=== PATIENT | male | born 1945 | race Two or more races ===

== ENCOUNTER 2018-04-06 09:29 | Outpatient (CLI) | payer OTHER ==
[~2018-04-06 09:29] MED LIST: BACTRIM DS TAB1 EACH PO; DOXYCYCLINE HY100 MG PO; FUROSEMIDE20 MG; LOSARTAN POTASS50 MG; NO RECUERDA
== END 2018-04-06 10:00 | disposition home or self-care (01) ==
LOC: NUCLEAR 09:29
DX: I82.493 Acute embolism and thrombosis of other specified deep vein of lower extremity, bilateral (principal)

== ENCOUNTER 2018-12-10 13:41 | Outpatient (CLI) | payer OTHER | END 2018-12-10 13:43 | disposition home or self-care (01) | LOC: RAD 13:41 | DX: M54.5 Low back pain (principal) ==

== ENCOUNTER 2018-12-12 09:57 | Outpatient (CLI) | payer OTHER | END 2018-12-12 11:10 | disposition home or self-care (01) | LOC: MRI 09:57 | DX: M54.5 Low back pain (principal) | CPT/HCPCS: 72148 ==

== ENCOUNTER → 2020-01-22 | Outpatient (CLI) | payer OTHER | END | disposition home or self-care (01) | LOC: NUCLEAR 07:32 | PROVIDERS: ATTEND Internal Medicine | DX: I82.542 Chronic embolism and thrombosis of left tibial vein (principal) ==

== ENCOUNTER 2020-05-17 16:58 | Emergency (ER) | payer OTHER ==
[~2020-05-17] VITALS: Ht 190.5 cm; Wt 122.5 kg
== END 2020-05-17 20:26 | disposition home or self-care (01) ==
LOC: ER 16:58
DX: I16.0 Hypertensive urgency (principal); I10 Essential (primary) hypertension; R06.02 Shortness of breath; Z03.818 Encounter for observation for suspected exposure to other biological agents ruled out

== ENCOUNTER 2020-06-20 19:48 | Emergency (ER) | payer OTHER ==
[~2020-06-20] VITALS: Ht 190.5 cm; Wt 125.2 kg
[2020-06-20] MEDS ORDERED: MAXIMUM D3325 MCG PO (20:06)
[2020-06-20] MEDS ORDERED: LOSARTAN POTAS100 MG PO (20:06)
[2020-06-20] MEDS ORDERED: GABAPENTIN600 MG PO (20:06)
[2020-06-20] MEDS ORDERED: LASIX40 MG PO (20:07)
[2020-06-20] MEDS ORDERED: CYMBALTA20 MG PO (20:07)
[2020-06-20] MEDS ORDERED: ADULT ASPIRIN R81 MG PO (20:08)
== END 2020-06-20 23:36 | disposition home or self-care (01) ==
LOC: ER 19:48
DX: I16.0 Hypertensive urgency (principal); I10 Essential (primary) hypertension; J44.9 Chronic obstructive pulmonary disease, unspecified

== ENCOUNTER 2020-07-27 08:21 | Outpatient (CLI) | payer OTHER ==
[~2020-07-27 08:21] MED LIST changes: +ADULT ASPIRIN R81 MG PO; +CYMBALTA20 MG PO; +GABAPENTIN600 MG PO; +LASIX40 MG PO; +LOSARTAN POTAS100 MG PO; +MAXIMUM D3325 MCG PO
== END 2020-07-27 08:24 | disposition home or self-care (01) ==
LOC: RAD 08:21
PROVIDERS: ATTEND Internal Medicine Pulmonary Disease
DX: R06.02 Shortness of breath (principal); J43.2 Centrilobular emphysema

== ENCOUNTER 2020-12-02 07:52 | Emergency (ER) | payer OTHER ==
[~2020-12-02] VITALS: Ht 190.5 cm; Wt 122.5 kg
== END 2020-12-02 08:58 | disposition home or self-care (01) ==
LOC: ER 07:52
DX: I16.1 Hypertensive emergency (principal); I10 Essential (primary) hypertension

== ENCOUNTER 2021-01-08 09:41 | Outpatient (CLI) | payer OTHER | END 2021-01-08 09:43 | disposition home or self-care (01) | LOC: LAB 09:41 → RAD 09:41 → LAB 09:43 | PROVIDERS: ATTEND Internal Medicine | DX: I10 Essential (primary) hypertension (principal); E11.9 Type 2 diabetes mellitus without complications; E55.9 Vitamin D deficiency, unspecified; G62.9 Polyneuropathy, unspecified; M25.561 Pain in right knee; Z12.11 Encounter for screening for malignant neoplasm of colon; R97.20 Elevated prostate specific antigen [PSA] ==

== ENCOUNTER → 2021-01-12 10:02 | Outpatient (CLI) | payer OTHER | END | disposition home or self-care (01) | LOC: LAB 10:02 | PROVIDERS: ATTEND Internal Medicine | DX: M25.561 Pain in right knee (principal); I10 Essential (primary) hypertension; G62.9 Polyneuropathy, unspecified; M10.061 Idiopathic gout, right knee; E11.9 Type 2 diabetes mellitus without complications; E55.9 Vitamin D deficiency, unspecified; R97.20 Elevated prostate specific antigen [PSA]; Z12.11 Encounter for screening for malignant neoplasm of colon ==

== ENCOUNTER 2021-01-16 10:30 | Inpatient (IN) | payer OTHER ==
[~2021-01-16] VITALS: Ht 190.5 cm; Wt 122.5 kg
== END 2021-01-20 13:15 | disposition home or self-care (01) | DRG 190 ==
LOC: ER 10:30 → MEDI 17:29
PROVIDERS: ADMIT Internal Medicine; ATTEND Internal Medicine
PROC: 3E0F7SF Introduction of Other Gas into Respiratory Tract, Via Natural or Artificial Opening (ICD-10-PCS; principal; 2021-01-16)
PROC: 4A12X4Z Monitoring of Cardiac Electrical Activity, External Approach (ICD-10-PCS; 2021-01-16)
PROC: CB2YYZZ Tomographic (Tomo) Nuclear Medicine Imaging of Respiratory System using Other Radionuclide (ICD-10-PCS; 2021-01-16)
PROC: 4A033R1 Measurement of Arterial Saturation, Peripheral, Percutaneous Approach (ICD-10-PCS; 2021-01-16)
PROC: B24BZZZ Ultrasonography of Heart with Aorta (ICD-10-PCS; 2021-01-17)
DX: J44.1 Chronic obstructive pulmonary disease with (acute) exacerbation (principal); I50.23 Acute on chronic systolic (congestive) heart failure; J43.0 Unilateral pulmonary emphysema [MacLeod's syndrome]; R91.8 Other nonspecific abnormal finding of lung field; J45.998 Other asthma; I11.0 Hypertensive heart disease with heart failure; E66.01 Morbid (severe) obesity due to excess calories; Z72.0 Tobacco use; Z20.822 Contact with and (suspected) exposure to COVID-19

== ENCOUNTER → 2021-02-09 08:26 | Outpatient (CLI) | payer OTHER | END | disposition home or self-care (01) | LOC: NUCLEAR 08:26 | PROVIDERS: ATTEND Internal Medicine Pulmonary Disease | DX: R91.1 Solitary pulmonary nodule (principal); J43.2 Centrilobular emphysema; I82.523 Chronic embolism and thrombosis of iliac vein, bilateral | CPT/HCPCS: 78816; 93970; A9552 ==

== ENCOUNTER → 2021-03-04 07:14 | Outpatient (CLI) | payer OTHER | END | disposition home or self-care (01) | LOC: LAB 07:14 | PROVIDERS: ATTEND Radiology Diagnostic Radiology | DX: U07.1 COVID-19 (principal); D68.8 Other specified coagulation defects; B38.1 Chronic pulmonary coccidioidomycosis ==

== ENCOUNTER 2021-03-04 07:52 | Outpatient (CLI) | payer OTHER | END 2021-03-04 07:59 | disposition home or self-care (01) | LOC: MRI 07:52 | PROVIDERS: ATTEND Orthopaedic Surgery | DX: M22.41 Chondromalacia patellae, right knee (principal); M17.11 Unilateral primary osteoarthritis, right knee; M25.561 Pain in right knee | CPT/HCPCS: 73721 ==

== ENCOUNTER 2021-04-08 14:15 | Outpatient (CLI) | payer OTHER | END 2021-04-08 14:16 | disposition home or self-care (01) | LOC: LAB 14:15 | PROVIDERS: ATTEND Internal Medicine Hematology & Oncology | DX: D50.8 Other iron deficiency anemias (principal); D68.8 Other specified coagulation defects; R91.8 Other nonspecific abnormal finding of lung field; G47.33 Obstructive sleep apnea (adult) (pediatric); I10 Essential (primary) hypertension; R97.0 Elevated carcinoembryonic antigen [CEA] ==

== ENCOUNTER → 2021-04-21 | Emergency (ER) | payer OTHER ==
[~2021-04-21] VITALS: Ht 190.5 cm; Wt 131.5 kg
== END | disposition left against medical advice (07) ==
LOC: ER 08:26
DX: Z53.20 Procedure and treatment not carried out because of patient's decision for unspecified reasons (principal)

== ENCOUNTER 2021-05-04 08:18 | Outpatient (CLI) | payer OTHER | END 2021-05-04 15:57 | disposition home or self-care (01) | LOC: LAB 08:18 | PROVIDERS: ATTEND Internal Medicine Hematology & Oncology | DX: G47.33 Obstructive sleep apnea (adult) (pediatric) (principal); D50.8 Other iron deficiency anemias; D68.8 Other specified coagulation defects; R91.8 Other nonspecific abnormal finding of lung field; I10 Essential (primary) hypertension; R97.0 Elevated carcinoembryonic antigen [CEA] ==

== ENCOUNTER → 2021-05-18 08:49 | Outpatient (CLI) | payer OTHER | END | disposition home or self-care (01) | LOC: LAB 08:49 | PROVIDERS: ATTEND Internal Medicine Hematology & Oncology | DX: I10 Essential (primary) hypertension (principal); D50.8 Other iron deficiency anemias; R74.02 Elevation of levels of lactic acid dehydrogenase [LDH]; K76.89 Other specified diseases of liver; R97.0 Elevated carcinoembryonic antigen [CEA]; R97.8 Other abnormal tumor markers; R91.8 Other nonspecific abnormal finding of lung field; G47.33 Obstructive sleep apnea (adult) (pediatric) ==

== ENCOUNTER 2021-06-15 05:50 | Day surgery (SDC) | payer OTHER | END 2021-06-15 15:04 | disposition home or self-care (01) | LOC: CIR.AMB 05:50 | PROVIDERS: ATTEND Specialist | DX: C34.12 Malignant neoplasm of upper lobe, left bronchus or lung (principal); Z20.822 Contact with and (suspected) exposure to COVID-19 | CPT/HCPCS: 36561; C1751 ==

== ENCOUNTER → 2021-06-18 08:23 | Outpatient (CLI) | payer OTHER | END | disposition home or self-care (01) | LOC: LAB 08:23 | PROVIDERS: ATTEND Internal Medicine | DX: E11.9 Type 2 diabetes mellitus without complications (principal); D50.8 Other iron deficiency anemias; I10 Essential (primary) hypertension; R74.02 Elevation of levels of lactic acid dehydrogenase [LDH]; K76.89 Other specified diseases of liver; R97.0 Elevated carcinoembryonic antigen [CEA]; R97.8 Other abnormal tumor markers; C34.12 Malignant neoplasm of upper lobe, left bronchus or lung; R91.8 Other nonspecific abnormal finding of lung field; G47.33 Obstructive sleep apnea (adult) (pediatric) ==

== ENCOUNTER 2021-06-30 07:25 | Outpatient (CLI) | payer OTHER | END 2021-06-30 07:26 | disposition home or self-care (01) | LOC: NUCLEAR 07:25 | DX: C34.12 Malignant neoplasm of upper lobe, left bronchus or lung (principal) | CPT/HCPCS: 78815; A9552 ==

== ENCOUNTER 2021-06-30 08:00 | Outpatient (CLI) | payer OTHER | END 2021-06-30 08:30 | disposition home or self-care (01) | LOC: PPH VACUNA 08:00 | PROVIDERS: ATTEND Emergency Medicine Pediatric Emergency Medicine | DX: Z23 Encounter for immunization (principal) ==

== ENCOUNTER 2021-07-23 08:16 | Outpatient (CLI) | payer OTHER | END 2021-07-23 08:20 | disposition home or self-care (01) | LOC: LAB 08:16 | PROVIDERS: ATTEND Internal Medicine Hematology & Oncology | DX: C34.12 Malignant neoplasm of upper lobe, left bronchus or lung (principal); R19.8 Other specified symptoms and signs involving the digestive system and abdomen; G47.33 Obstructive sleep apnea (adult) (pediatric); I10 Essential (primary) hypertension; R97.0 Elevated carcinoembryonic antigen [CEA] ==

== ENCOUNTER 2021-08-31 08:04 | Outpatient (CLI) | payer OTHER | END 2021-08-31 08:10 | disposition home or self-care (01) | LOC: LAB 08:04 | PROVIDERS: ATTEND Internal Medicine Hematology & Oncology | DX: D50.8 Other iron deficiency anemias (principal); I10 Essential (primary) hypertension; R74.02 Elevation of levels of lactic acid dehydrogenase [LDH]; K76.89 Other specified diseases of liver; R97.0 Elevated carcinoembryonic antigen [CEA]; R97.8 Other abnormal tumor markers; C34.12 Malignant neoplasm of upper lobe, left bronchus or lung; R91.8 Other nonspecific abnormal finding of lung field; G47.33 Obstructive sleep apnea (adult) (pediatric) ==

== ENCOUNTER → 2021-09-20 07:31 | Outpatient (CLI) | payer OTHER | END | disposition home or self-care (01) | LOC: LAB 07:31 | PROVIDERS: ATTEND Internal Medicine Hematology & Oncology | DX: D50.8 Other iron deficiency anemias (principal); I10 Essential (primary) hypertension; R74.02 Elevation of levels of lactic acid dehydrogenase [LDH]; K76.89 Other specified diseases of liver; R97.0 Elevated carcinoembryonic antigen [CEA]; R97.8 Other abnormal tumor markers; C34.12 Malignant neoplasm of upper lobe, left bronchus or lung; R91.8 Other nonspecific abnormal finding of lung field; G47.33 Obstructive sleep apnea (adult) (pediatric); M25.561 Pain in right knee; M25.562 Pain in left knee ==

== ENCOUNTER 2021-09-28 08:11 | Outpatient (CLI) | payer OTHER | END 2021-09-28 08:12 | disposition home or self-care (01) | LOC: LAB 08:11 | PROVIDERS: ATTEND Internal Medicine Hematology & Oncology | DX: D50.8 Other iron deficiency anemias (principal) ==

== ENCOUNTER 2021-10-08 08:28 | Outpatient (CLI) | payer OTHER | END 2021-10-08 08:29 | disposition home or self-care (01) | LOC: LAB 08:28 | PROVIDERS: ATTEND Internal Medicine Hematology & Oncology | DX: D50.8 Other iron deficiency anemias (principal); I10 Essential (primary) hypertension; K76.89 Other specified diseases of liver; R97.0 Elevated carcinoembryonic antigen [CEA]; R97.8 Other abnormal tumor markers; R97.20 Elevated prostate specific antigen [PSA]; C34.12 Malignant neoplasm of upper lobe, left bronchus or lung; R91.8 Other nonspecific abnormal finding of lung field; G47.33 Obstructive sleep apnea (adult) (pediatric) ==

== ENCOUNTER 2021-10-19 07:32 | Outpatient (CLI) | payer OTHER | END 2021-10-19 07:33 | disposition home or self-care (01) | LOC: LAB 07:32 | PROVIDERS: ATTEND Internal Medicine Hematology & Oncology | DX: D50.8 Other iron deficiency anemias (principal) ==

== ENCOUNTER 2021-10-22 08:24 | Outpatient (CLI) | payer OTHER | END 2021-10-22 08:39 | disposition home or self-care (01) | LOC: MRI 08:24 | PROVIDERS: ATTEND Radiology Radiation Oncology | DX: C34.12 Malignant neoplasm of upper lobe, left bronchus or lung (principal); R51.9 Headache, unspecified; R42 Dizziness and giddiness | CPT/HCPCS: 70553; Q9965 ==

== ENCOUNTER 2021-11-01 08:36 | Outpatient (CLI) | payer OTHER | END 2021-11-01 08:37 | disposition home or self-care (01) | LOC: LAB 08:36 | PROVIDERS: ATTEND Internal Medicine Hematology & Oncology | DX: D50.8 Other iron deficiency anemias (principal); I10 Essential (primary) hypertension; R74.02 Elevation of levels of lactic acid dehydrogenase [LDH]; K76.89 Other specified diseases of liver; R97.0 Elevated carcinoembryonic antigen [CEA]; R97.8 Other abnormal tumor markers; C34.12 Malignant neoplasm of upper lobe, left bronchus or lung; R91.8 Other nonspecific abnormal finding of lung field; G47.33 Obstructive sleep apnea (adult) (pediatric); D70.1 Agranulocytosis secondary to cancer chemotherapy ==

== ENCOUNTER 2021-11-08 08:45 | Outpatient (CLI) | payer OTHER | END 2021-11-08 08:46 | disposition home or self-care (01) | LOC: LAB 08:45 | PROVIDERS: ATTEND Internal Medicine Hematology & Oncology | DX: D50.8 Other iron deficiency anemias (principal) ==

== ENCOUNTER 2021-11-10 08:27 | Outpatient (CLI) | payer OTHER | END 2021-11-10 08:28 | disposition home or self-care (01) | LOC: LAB 08:27 | PROVIDERS: ATTEND Internal Medicine Hematology & Oncology | DX: D50.8 Other iron deficiency anemias (principal) ==

== ENCOUNTER 2021-11-22 08:09 | Outpatient (CLI) | payer OTHER | END 2021-11-22 08:10 | disposition home or self-care (01) | LOC: LAB 08:09 | PROVIDERS: ATTEND Internal Medicine Hematology & Oncology | DX: C34.12 Malignant neoplasm of upper lobe, left bronchus or lung (principal); R91.8 Other nonspecific abnormal finding of lung field; G47.33 Obstructive sleep apnea (adult) (pediatric); I10 Essential (primary) hypertension; R97.0 Elevated carcinoembryonic antigen [CEA]; D70.1 Agranulocytosis secondary to cancer chemotherapy ==

== ENCOUNTER 2021-11-30 07:21 | Outpatient (CLI) | payer OTHER | END 2021-11-30 07:22 | disposition home or self-care (01) | LOC: LAB 07:21 | PROVIDERS: ATTEND Internal Medicine Hematology & Oncology | DX: D50.8 Other iron deficiency anemias (principal) ==

== ENCOUNTER 2021-12-02 07:18 | Outpatient (CLI) | payer OTHER | END 2021-12-02 07:19 | disposition home or self-care (01) | LOC: NUCLEAR 07:18 | PROVIDERS: ATTEND Internal Medicine Hematology & Oncology | DX: C34.12 Malignant neoplasm of upper lobe, left bronchus or lung (principal); R91.8 Other nonspecific abnormal finding of lung field; G47.33 Obstructive sleep apnea (adult) (pediatric); I10 Essential (primary) hypertension; R97.0 Elevated carcinoembryonic antigen [CEA]; D70.1 Agranulocytosis secondary to cancer chemotherapy | CPT/HCPCS: 78812; A9552 ==

== ENCOUNTER 2021-12-02 08:00 | Outpatient (CLI) | payer OTHER | END 2021-12-02 08:30 | disposition home or self-care (01) | LOC: PPH VACUNA 08:00 | PROVIDERS: ATTEND Emergency Medicine Pediatric Emergency Medicine | DX: Z23 Encounter for immunization (principal) ==

== ENCOUNTER 2021-12-04 07:26 | Outpatient (CLI) | payer OTHER | END 2021-12-04 07:29 | disposition home or self-care (01) | LOC: LAB 07:26 | PROVIDERS: ATTEND Internal Medicine Hematology & Oncology | DX: D50.8 Other iron deficiency anemias (principal); I10 Essential (primary) hypertension; R74.02 Elevation of levels of lactic acid dehydrogenase [LDH]; K76.89 Other specified diseases of liver; R97.0 Elevated carcinoembryonic antigen [CEA]; R97.8 Other abnormal tumor markers; C34.12 Malignant neoplasm of upper lobe, left bronchus or lung; R91.8 Other nonspecific abnormal finding of lung field; G47.33 Obstructive sleep apnea (adult) (pediatric) ==

== ENCOUNTER 2022-01-05 07:30 | Outpatient (CLI) | payer OTHER | END 2022-01-05 07:33 | disposition home or self-care (01) | LOC: LAB 07:30 | PROVIDERS: ATTEND Internal Medicine Hematology & Oncology | DX: C34.12 Malignant neoplasm of upper lobe, left bronchus or lung (principal); R91.8 Other nonspecific abnormal finding of lung field; G47.33 Obstructive sleep apnea (adult) (pediatric); I10 Essential (primary) hypertension; R97.0 Elevated carcinoembryonic antigen [CEA]; D70.1 Agranulocytosis secondary to cancer chemotherapy ==

== ENCOUNTER 2022-02-12 07:05 | Outpatient (CLI) | payer OTHER | END 2022-02-12 07:06 | disposition home or self-care (01) | LOC: LAB 07:05 | PROVIDERS: ATTEND Internal Medicine Hematology & Oncology | DX: D50.8 Other iron deficiency anemias (principal); I10 Essential (primary) hypertension; R74.02 Elevation of levels of lactic acid dehydrogenase [LDH]; K76.89 Other specified diseases of liver; D51.8 Other vitamin B12 deficiency anemias; R97.0 Elevated carcinoembryonic antigen [CEA]; R97.8 Other abnormal tumor markers; C34.12 Malignant neoplasm of upper lobe, left bronchus or lung; R91.8 Other nonspecific abnormal finding of lung field; G47.33 Obstructive sleep apnea (adult) (pediatric); D70.1 Agranulocytosis secondary to cancer chemotherapy ==

== ENCOUNTER 2022-02-17 07:16 | Outpatient (CLI) | payer OTHER | END 2022-02-17 07:27 | disposition home or self-care (01) | LOC: TOM 07:16 | PROVIDERS: ATTEND Internal Medicine Hematology & Oncology | DX: C34.12 Malignant neoplasm of upper lobe, left bronchus or lung (principal); R91.8 Other nonspecific abnormal finding of lung field; G47.33 Obstructive sleep apnea (adult) (pediatric); I10 Essential (primary) hypertension; R97.0 Elevated carcinoembryonic antigen [CEA]; D70.1 Agranulocytosis secondary to cancer chemotherapy | CPT/HCPCS: 71260; Q9965 ==

== ENCOUNTER 2022-03-01 07:26 | Outpatient (CLI) | payer OTHER | END 2022-03-01 07:35 | disposition home or self-care (01) | LOC: LAB 07:26 | PROVIDERS: ATTEND Internal Medicine | DX: I10 Essential (primary) hypertension (principal); M10.9 Gout, unspecified; E55.9 Vitamin D deficiency, unspecified; E11.9 Type 2 diabetes mellitus without complications; Z12.11 Encounter for screening for malignant neoplasm of colon ==

== ENCOUNTER 2022-04-01 07:17 | Outpatient (CLI) | payer OTHER | END 2022-04-01 07:18 | disposition home or self-care (01) | LOC: LAB 07:17 | PROVIDERS: ATTEND Internal Medicine Hematology & Oncology | DX: D50.8 Other iron deficiency anemias (principal); I10 Essential (primary) hypertension; R74.02 Elevation of levels of lactic acid dehydrogenase [LDH]; K76.89 Other specified diseases of liver; D51.8 Other vitamin B12 deficiency anemias; R97.0 Elevated carcinoembryonic antigen [CEA]; R97.8 Other abnormal tumor markers; C34.12 Malignant neoplasm of upper lobe, left bronchus or lung; R91.8 Other nonspecific abnormal finding of lung field; G47.33 Obstructive sleep apnea (adult) (pediatric); D70.1 Agranulocytosis secondary to cancer chemotherapy ==

== ENCOUNTER 2022-05-16 07:38 | Outpatient (CLI) | payer OTHER | END 2022-05-16 07:39 | disposition home or self-care (01) | LOC: LAB 07:38 | PROVIDERS: ATTEND Internal Medicine Hematology & Oncology | DX: D50.8 Other iron deficiency anemias (principal); I10 Essential (primary) hypertension; R74.02 Elevation of levels of lactic acid dehydrogenase [LDH]; K76.89 Other specified diseases of liver; R97.0 Elevated carcinoembryonic antigen [CEA]; R97.8 Other abnormal tumor markers; C34.12 Malignant neoplasm of upper lobe, left bronchus or lung; G47.33 Obstructive sleep apnea (adult) (pediatric) ==

== ENCOUNTER 2022-05-25 11:57 | Outpatient (CLI) | payer OTHER | END 2022-05-25 12:03 | disposition home or self-care (01) | LOC: RX STUDY 11:57 | PROVIDERS: ATTEND Internal Medicine Hematology & Oncology | DX: T85.618A Breakdown (mechanical) of other specified internal prosthetic devices, implants and grafts, initial encounter (principal) ==

== ENCOUNTER 2022-07-15 08:17 | Outpatient (CLI) | payer OTHER | END 2022-07-15 08:19 | disposition home or self-care (01) | LOC: LAB 08:17 | PROVIDERS: ATTEND Internal Medicine Hematology & Oncology | DX: D50.8 Other iron deficiency anemias (principal); I10 Essential (primary) hypertension; R74.02 Elevation of levels of lactic acid dehydrogenase [LDH]; K76.89 Other specified diseases of liver; E03.8 Other specified hypothyroidism; R97.0 Elevated carcinoembryonic antigen [CEA]; R97.8 Other abnormal tumor markers; R97.20 Elevated prostate specific antigen [PSA] ==

== ENCOUNTER 2022-08-17 08:26 | Outpatient (CLI) | payer OTHER | END 2022-08-17 08:30 | disposition home or self-care (01) | LOC: NUCLEAR 08:26 | PROVIDERS: ATTEND Internal Medicine Hematology & Oncology | DX: C34.12 Malignant neoplasm of upper lobe, left bronchus or lung (principal); R91.8 Other nonspecific abnormal finding of lung field; G47.33 Obstructive sleep apnea (adult) (pediatric); I10 Essential (primary) hypertension; R97.0 Elevated carcinoembryonic antigen [CEA]; D70.1 Agranulocytosis secondary to cancer chemotherapy | CPT/HCPCS: 78816; A9552 ==

== ENCOUNTER 2022-08-29 09:22 | Emergency (ER) | payer OTHER ==
[~2022-08-29] VITALS: Ht 190.5 cm; Wt 129.3 kg
[2022-08-29] MEDS ORDERED: METFORMIN HCL500 M3 PO (09:35)
== END 2022-08-29 13:32 | disposition home or self-care (01) ==
LOC: ER 09:22
DX: J43.9 Emphysema, unspecified (principal); Z20.822 Contact with and (suspected) exposure to COVID-19; Z85.118 Personal history of other malignant neoplasm of bronchus and lung

== ENCOUNTER → 2022-09-10 07:41 | Outpatient (CLI) | payer OTHER ==
[~2022-09-10 07:41] MED LIST changes: +METFORMIN HCL500 M3 PO
== END | disposition home or self-care (01) ==
LOC: LAB 07:41
PROVIDERS: ATTEND Internal Medicine Hematology & Oncology
DX: D50.8 Other iron deficiency anemias (principal); I10 Essential (primary) hypertension; R74.02 Elevation of levels of lactic acid dehydrogenase [LDH]; K76.89 Other specified diseases of liver; R97.0 Elevated carcinoembryonic antigen [CEA]; R97.8 Other abnormal tumor markers; C34.12 Malignant neoplasm of upper lobe, left bronchus or lung; R91.8 Other nonspecific abnormal finding of lung field; D70.1 Agranulocytosis secondary to cancer chemotherapy

== ENCOUNTER 2022-09-26 08:04 | Outpatient (CLI) | payer OTHER | END 2022-09-26 08:14 | disposition home or self-care (01) | LOC: TOM 08:04 | PROVIDERS: ATTEND Internal Medicine Gastroenterology | DX: Z12.11 Encounter for screening for malignant neoplasm of colon (principal); Z80.0 Family history of malignant neoplasm of digestive organs; K56.600 Partial intestinal obstruction, unspecified as to cause ==

== ENCOUNTER → 2022-10-06 08:22 | Outpatient (CLI) | payer OTHER | END | disposition home or self-care (01) | LOC: LAB 08:22 | PROVIDERS: ATTEND Internal Medicine Hematology & Oncology | DX: D50.8 Other iron deficiency anemias (principal); I10 Essential (primary) hypertension; R74.02 Elevation of levels of lactic acid dehydrogenase [LDH]; K76.89 Other specified diseases of liver; R97.0 Elevated carcinoembryonic antigen [CEA]; R97.8 Other abnormal tumor markers; C34.12 Malignant neoplasm of upper lobe, left bronchus or lung; R91.8 Other nonspecific abnormal finding of lung field; G47.33 Obstructive sleep apnea (adult) (pediatric); D70.1 Agranulocytosis secondary to cancer chemotherapy ==

== ENCOUNTER 2022-11-07 08:07 | Outpatient (CLI) | payer OTHER | END 2022-11-07 08:11 | disposition home or self-care (01) | LOC: LAB 08:07 | PROVIDERS: ATTEND Internal Medicine Hematology & Oncology | DX: D50.8 Other iron deficiency anemias (principal); I10 Essential (primary) hypertension; R74.02 Elevation of levels of lactic acid dehydrogenase [LDH]; K76.89 Other specified diseases of liver; D51.8 Other vitamin B12 deficiency anemias; R97.0 Elevated carcinoembryonic antigen [CEA]; R97.8 Other abnormal tumor markers; C34.12 Malignant neoplasm of upper lobe, left bronchus or lung; R91.8 Other nonspecific abnormal finding of lung field; G47.33 Obstructive sleep apnea (adult) (pediatric) ==

== ENCOUNTER 2022-11-11 19:40 | Emergency (ER) | payer OTHER ==
[~2022-11-11] VITALS: Ht 190.5 cm; Wt 127.0 kg
[2022-11-11] MEDS ORDERED: COZAAR100 MG (20:17)
[2022-11-11] MEDS ORDERED: GLUMETZA500 MG (20:17)
[2022-11-11] MEDS ORDERED: NEURONTIN600 M1 (20:18)
[2022-11-11] MEDS ORDERED: DULOXETINE HCL40 MG (20:18)
[2022-11-11] MEDS ORDERED: MILLIPRED5 MG (20:18)
[2022-11-11] MEDS ORDERED: LASIX40 MG (20:18)
[2022-11-11] MEDS ORDERED: LEVOFLOXACIN750 MG PO (23:12)
== END 2022-11-11 23:27 | disposition home or self-care (01) ==
LOC: ER 19:40
DX: J44.1 Chronic obstructive pulmonary disease with (acute) exacerbation (principal); J45.901 Unspecified asthma with (acute) exacerbation; C34.90 Malignant neoplasm of unspecified part of unspecified bronchus or lung; E11.9 Type 2 diabetes mellitus without complications; Z79.84 Long term (current) use of oral hypoglycemic drugs; I10 Essential (primary) hypertension; Z87.891 Personal history of nicotine dependence; Z20.822 Contact with and (suspected) exposure to COVID-19

== ENCOUNTER 2022-12-02 07:55 | Outpatient (CLI) | payer OTHER ==
[~2022-12-02 07:55] MED LIST changes: +COZAAR100 MG; +DULOXETINE HCL40 MG; +GLUMETZA500 MG; +LASIX40 MG; +LEVOFLOXACIN750 MG PO; +MILLIPRED5 MG; +NEURONTIN600 M1
== END 2022-12-02 07:58 | disposition home or self-care (01) ==
LOC: LAB 07:55
PROVIDERS: ATTEND Internal Medicine Hematology & Oncology
DX: D50.8 Other iron deficiency anemias (principal); I10 Essential (primary) hypertension; R74.02 Elevation of levels of lactic acid dehydrogenase [LDH]; K76.89 Other specified diseases of liver; R97.0 Elevated carcinoembryonic antigen [CEA]; R97.8 Other abnormal tumor markers; R97.20 Elevated prostate specific antigen [PSA]; C34.12 Malignant neoplasm of upper lobe, left bronchus or lung; G47.33 Obstructive sleep apnea (adult) (pediatric); D70.1 Agranulocytosis secondary to cancer chemotherapy; R91.8 Other nonspecific abnormal finding of lung field

== ENCOUNTER 2023-01-03 07:53 | Outpatient (CLI) | payer OTHER | END 2023-01-03 07:55 | disposition home or self-care (01) | LOC: LAB 07:53 | PROVIDERS: ATTEND Internal Medicine Hematology & Oncology | DX: D50.8 Other iron deficiency anemias (principal); I10 Essential (primary) hypertension; R74.02 Elevation of levels of lactic acid dehydrogenase [LDH]; K76.89 Other specified diseases of liver; R97.0 Elevated carcinoembryonic antigen [CEA]; R97.8 Other abnormal tumor markers; D51.8 Other vitamin B12 deficiency anemias; C34.12 Malignant neoplasm of upper lobe, left bronchus or lung; R91.8 Other nonspecific abnormal finding of lung field; G47.33 Obstructive sleep apnea (adult) (pediatric); D70.1 Agranulocytosis secondary to cancer chemotherapy ==

== ENCOUNTER 2023-01-30 08:20 | Outpatient (CLI) | payer OTHER | END 2023-01-30 09:43 | disposition home or self-care (01) | LOC: LAB 08:20 | PROVIDERS: ATTEND Internal Medicine Hematology & Oncology | DX: D50.8 Other iron deficiency anemias (principal); I10 Essential (primary) hypertension; R74.02 Elevation of levels of lactic acid dehydrogenase [LDH]; K76.89 Other specified diseases of liver; R97.0 Elevated carcinoembryonic antigen [CEA]; R97.8 Other abnormal tumor markers; C34.12 Malignant neoplasm of upper lobe, left bronchus or lung; R91.8 Other nonspecific abnormal finding of lung field; G47.33 Obstructive sleep apnea (adult) (pediatric); D70.1 Agranulocytosis secondary to cancer chemotherapy ==

== ENCOUNTER 2023-03-14 08:00 | Outpatient (CLI) | payer OTHER | END 2023-03-14 08:01 | disposition home or self-care (01) | LOC: LAB 08:00 | PROVIDERS: ATTEND Internal Medicine Hematology & Oncology | DX: D50.8 Other iron deficiency anemias (principal); I10 Essential (primary) hypertension; R74.02 Elevation of levels of lactic acid dehydrogenase [LDH]; K76.89 Other specified diseases of liver; D51.8 Other vitamin B12 deficiency anemias; R97.8 Other abnormal tumor markers; R97.0 Elevated carcinoembryonic antigen [CEA]; R97.20 Elevated prostate specific antigen [PSA]; C34.12 Malignant neoplasm of upper lobe, left bronchus or lung; R91.8 Other nonspecific abnormal finding of lung field; G47.33 Obstructive sleep apnea (adult) (pediatric); D70.1 Agranulocytosis secondary to cancer chemotherapy ==

== ENCOUNTER → 2023-04-11 07:46 | Outpatient (CLI) | payer OTHER | END | disposition home or self-care (01) | LOC: LAB 07:46 | PROVIDERS: ATTEND Internal Medicine Hematology & Oncology | DX: D50.8 Other iron deficiency anemias (principal); I10 Essential (primary) hypertension; R74.02 Elevation of levels of lactic acid dehydrogenase [LDH]; K76.89 Other specified diseases of liver; R97.0 Elevated carcinoembryonic antigen [CEA]; R97.8 Other abnormal tumor markers; C34.12 Malignant neoplasm of upper lobe, left bronchus or lung; R91.8 Other nonspecific abnormal finding of lung field; G47.33 Obstructive sleep apnea (adult) (pediatric); D70.1 Agranulocytosis secondary to cancer chemotherapy ==

== ENCOUNTER → 2023-06-01 08:09 | Outpatient (CLI) | payer OTHER ==
[2023-06-01 09:21] LABS: HEMATOCRIT 46.5 % (39.0-48.0); HEMOGLOBIN 15.7 g/dL (13-16.00); MEAN CELL VOLUME 103.2 fL (80.0-100.00); MEAN CORPUSCULAR HEMOGLOBIN 34.8 pg (27.00-32.0); MEAN CORPUSCULAR HGB CONC 33.7 g/dl (32.0-36.0); PLATELET COUNT 190 K/uL (150-450); RED CELL DISTRIBUTION WIDTH 13.7 % (11.5-14.5)
[2023-06-01 09:43] LABS: ALBUMIN 3.8 gm/dL (3.4-5.0); BILIRUBIN TOTAL 0.4 mg/dL (0.3-1.2); CALCIUM 9.3 mg/dL (8.5-10.1); CREATININE SERUM 1.19 mg/dL (0.70-1.30); GFR 59.28; GLOBULINA 3.4 G/DL (2.4-3.5); POTASSIUM 5.06 mEq/L (3.5-5.1); PROSTATIC SPECIFIC ANTIGEN 2.21 NG/ML (0.010-4.00); TOTAL PROTEIN 7.2 gm/dL (6.4-8.2)
== END | disposition home or self-care (01) ==
LOC: LAB 08:09
PROVIDERS: ATTEND Internal Medicine Hematology & Oncology
DX: D50.8 Other iron deficiency anemias (principal); I10 Essential (primary) hypertension; R74.02 Elevation of levels of lactic acid dehydrogenase [LDH]; K76.89 Other specified diseases of liver; R97.0 Elevated carcinoembryonic antigen [CEA]; R97.8 Other abnormal tumor markers; R97.20 Elevated prostate specific antigen [PSA]; C34.12 Malignant neoplasm of upper lobe, left bronchus or lung; R91.8 Other nonspecific abnormal finding of lung field; G47.33 Obstructive sleep apnea (adult) (pediatric); D70.1 Agranulocytosis secondary to cancer chemotherapy

== ENCOUNTER 2023-08-28 07:15 | Outpatient (CLI) | payer OTHER ==
[2023-08-28 08:00] LABS: PH,URINE 6.5 (5.0-8.0); URINE APPEARANCE Clear; URINE BILIRRUBIN Negative (NEGATIVE); URINE BLOOD Negative; URINE COLOR Yellow; URINE GLUCOSE Negative (NEGATIVE); URINE LEUKOCYTE Negative; URINE NITRATE Negative; URINE PROTEIN Negative (NEGATIVE); URINE UROBILINOGEN 0.2 E.U./dl
[2023-08-28 08:02] LABS: URINE RBC 2.5 uL (0.0-20.8)
[2023-08-28 08:39] LABS: HEMATOCRIT 44.7 % (39.0-48.0); HEMOGLOBIN 15.2 g/dL (13-16.00); MEAN CELL VOLUME 101.6 fL (80.0-100.00); MEAN CORPUSCULAR HEMOGLOBIN 34.6 pg (27.00-32.0); MEAN CORPUSCULAR HGB CONC 34.1 g/dl (32.0-36.0); PLATELET COUNT 179 K/uL (150-450); RED CELL DISTRIBUTION WIDTH 13.6 % (11.5-14.5)
[2023-08-28 08:45] LABS: ALBUMIN 3.7 gm/dL (3.4-5.0); BILIRUBIN TOTAL 0.49 mg/dL (0.3-1.2); CHOL HDL RATIO 3.2 (0-5.0); CREATININE SERUM 1.21 mg/dL (0.70-1.30); GFR 58.15; GLOBULINA 3.2 G/DL (2.4-3.5); POTASSIUM 4.9 mEq/L (3.5-5.1); PROSTATIC SPECIFIC ANTIGEN 2.28 NG/ML (0.010-4.00); TOTAL PROTEIN 6.9 gm/dL (6.4-8.2); TSH 1.03 uIU/mL (0.358-3.74)
[2023-08-28 08:48] LABS: URINE WBC 0.6 uL (0.0-23.2)
[2023-08-28 08:49] LABS: URINE BACTERIA 1.2 uL (0.0-1933); URINE EPITHELIAL CELLS 0.7 uL (0.0-38.8)
[2023-08-28 10:45] LABS: FOLIC ACID 8.97 ng/ml (4.78-20); VITAMIN D3 25 HYDROXY 30.93 ng/ml (30-120)
== END 2023-08-28 08:17 | disposition home or self-care (01) ==
LOC: LAB 07:15
PROVIDERS: ATTEND Internal Medicine Hematology & Oncology
DX: C34.12 Malignant neoplasm of upper lobe, left bronchus or lung (principal); D50.8 Other iron deficiency anemias; R74.02 Elevation of levels of lactic acid dehydrogenase [LDH]; K76.89 Other specified diseases of liver; D51.8 Other vitamin B12 deficiency anemias; R91.8 Other nonspecific abnormal finding of lung field; I10 Essential (primary) hypertension; R97.0 Elevated carcinoembryonic antigen [CEA]; D70.1 Agranulocytosis secondary to cancer chemotherapy

== ENCOUNTER 2023-08-30 08:49 | Outpatient (CLI) | payer OTHER ==
[2023-08-30 12:13] LABS: ob NEGATIVE (NEGATIVE)
== END 2023-08-30 08:53 | disposition home or self-care (01) ==
LOC: LAB 08:49
PROVIDERS: Internal Medicine Hematology & Oncology; ATTEND Internal Medicine
DX: E03.9 Hypothyroidism, unspecified (principal); E11.21 Type 2 diabetes mellitus with diabetic nephropathy; N39.9 Disorder of urinary system, unspecified; N40.1 Benign prostatic hyperplasia with lower urinary tract symptoms; D40.0 Neoplasm of uncertain behavior of prostate; E78.2 Mixed hyperlipidemia; E11.65 Type 2 diabetes mellitus with hyperglycemia; Z12.11 Encounter for screening for malignant neoplasm of colon; D64.9 Anemia, unspecified; D68.8 Other specified coagulation defects; M32.10 Systemic lupus erythematosus, organ or system involvement unspecified; K75.81 Nonalcoholic steatohepatitis (NASH); N25.81 Secondary hyperparathyroidism of renal origin; N39.0 Urinary tract infection, site not specified; E55.9 Vitamin D deficiency, unspecified

== ENCOUNTER 2023-09-12 07:55 | Outpatient (CLI) | payer OTHER | END 2023-09-12 07:57 | disposition home or self-care (01) | LOC: NUCLEAR 07:55 | PROVIDERS: ATTEND Internal Medicine Hematology & Oncology | DX: C34.12 Malignant neoplasm of upper lobe, left bronchus or lung (principal); R91.8 Other nonspecific abnormal finding of lung field; R97.0 Elevated carcinoembryonic antigen [CEA]; D70.1 Agranulocytosis secondary to cancer chemotherapy | CPT/HCPCS: 78816; A9552 ==

== ENCOUNTER 2023-11-09 07:45 | Outpatient (CLI) | payer OTHER ==
[2023-11-09 09:07] LABS: HEMATOCRIT 43.8 % (39.0-48.0); MEAN CORPUSCULAR HGB CONC 34.3 g/dl (32.0-36.0); PLATELET COUNT 172 K/uL (150-450); RED BLOOD COUNT 4.29 M/uL (4.00-6.00); RED CELL DISTRIBUTION WIDTH 14.7 % (11.5-14.5)
[2023-11-09 09:09] LABS: ALBUMIN 3.7 gm/dL (3.4-5.0); BILIRUBIN TOTAL 0.34 mg/dL (0.3-1.2); CALCIUM 9.4 mg/dL (8.5-10.1); CREATININE SERUM 1.43 mg/dL (0.70-1.30); GFR 47.95; GLOBULINA 3.2 G/DL (2.4-3.5); POTASSIUM 4.42 mEq/L (3.5-5.1); PROSTATIC SPECIFIC ANTIGEN 2.09 NG/ML (0.010-4.00); TOTAL PROTEIN 6.9 gm/dL (6.4-8.2)
== END 2023-11-09 07:46 | disposition home or self-care (01) ==
LOC: LAB 07:45
PROVIDERS: ATTEND Internal Medicine Hematology & Oncology
DX: C34.12 Malignant neoplasm of upper lobe, left bronchus or lung (principal); R91.8 Other nonspecific abnormal finding of lung field; G47.33 Obstructive sleep apnea (adult) (pediatric); I10 Essential (primary) hypertension; R97.0 Elevated carcinoembryonic antigen [CEA]; D70.1 Agranulocytosis secondary to cancer chemotherapy

== ENCOUNTER 2024-01-30 08:07 | Outpatient (CLI) | payer OTHER ==
[2024-01-30 08:59] LABS: HEMATOCRIT 40.1 % (39.0-48.0); HEMOGLOBIN 14.1 g/dL (13-16.00); MEAN CELL VOLUME 103.7 fL (80.0-100.00); MEAN CORPUSCULAR HEMOGLOBIN 36.5 pg (27.00-32.0); MEAN CORPUSCULAR HGB CONC 35.2 g/dl (32.0-36.0); RED BLOOD COUNT 3.87 M/uL (4.00-6.00); RED CELL DISTRIBUTION WIDTH 15.1 % (11.5-14.5)
[2024-01-30 09:00] LABS: PLATELET COUNT 118 K/uL (150-450)
[2024-01-30 10:17] LABS: ALBUMIN 3.9 gm/dL (3.4-5.0); BILIRUBIN TOTAL 0.49 mg/dL (0.3-1.2); CALCIUM 9.8 mg/dL (8.5-10.1); CREATININE SERUM 1.61 mg/dL (0.70-1.30); GFR 41.71; GLOBULINA 3.2 G/DL (2.4-3.5); POTASSIUM 4.37 mEq/L (3.5-5.1); PROSTATIC SPECIFIC ANTIGEN 1.91 NG/ML (0.010-4.00); T4 FREE 0.13 NG/ML (0.76-1.46); TOTAL PROTEIN 7.1 gm/dL (6.4-8.2); TSH 66.1 uIU/mL (0.358-3.74)
== END 2024-01-30 08:10 | disposition home or self-care (01) ==
LOC: LAB 08:07
PROVIDERS: ATTEND Internal Medicine Hematology & Oncology
DX: C34.12 Malignant neoplasm of upper lobe, left bronchus or lung (principal); R91.8 Other nonspecific abnormal finding of lung field; G47.33 Obstructive sleep apnea (adult) (pediatric); I10 Essential (primary) hypertension; R97.0 Elevated carcinoembryonic antigen [CEA]; D70.1 Agranulocytosis secondary to cancer chemotherapy; D50.8 Other iron deficiency anemias; K76.89 Other specified diseases of liver; E03.8 Other specified hypothyroidism; R97.20 Elevated prostate specific antigen [PSA]

== ENCOUNTER → 2024-02-19 06:51 | Outpatient (CLI) | payer OTHER ==
[2024-02-19 07:45] LABS: HEMATOCRIT 37.5 % (39.0-48.0); HEMOGLOBIN 13.2 g/dL (13-16.00); MEAN CELL VOLUME 106.3 fL (80.0-100.00); MEAN CORPUSCULAR HEMOGLOBIN 37.5 pg (27.00-32.0); MEAN CORPUSCULAR HGB CONC 35.3 g/dl (32.0-36.0); PLATELET COUNT 164 K/uL (150-450); RED BLOOD COUNT 3.53 M/uL (4.00-6.00); RED CELL DISTRIBUTION WIDTH 14.8 % (11.5-14.5)
[2024-02-19 09:06] LABS: ALBUMIN 4.2 gm/dL (3.4-5.0); BILIRUBIN TOTAL 0.58 mg/dL (0.3-1.2); CALCIUM 9.4 mg/dL (8.5-10.1); CREATININE SERUM 1.33 mg/dL (0.70-1.30); FREE TRIODOTIRONINE 1.25 pg/ml (2.18-3.98); PHOSPHOROUS 3.5 mg/dL (2.5-4.9); POTASSIUM 4.43 mEq/L (3.5-5.1); T4 FREE 0.55 NG/ML (0.76-1.46); T4 TOTAL 5.3 UG/DL (4.5-12.1); TOTAL PROTEIN 7.2 gm/dL (6.4-8.2)
[2024-02-19 09:10] LABS: TSH 48.8 uIU/mL (0.358-3.74)
== END | disposition home or self-care (01) ==
LOC: LAB 06:51
PROVIDERS: ATTEND Internal Medicine Hematology & Oncology
DX: C34.12 Malignant neoplasm of upper lobe, left bronchus or lung (principal); R91.8 Other nonspecific abnormal finding of lung field; G47.33 Obstructive sleep apnea (adult) (pediatric); I10 Essential (primary) hypertension; R97.0 Elevated carcinoembryonic antigen [CEA]; D70.1 Agranulocytosis secondary to cancer chemotherapy; E03.9 Hypothyroidism, unspecified; N18.30 Chronic kidney disease, stage 3 unspecified

== ENCOUNTER 2024-02-19 07:38 | Outpatient (CLI) | payer OTHER | END 2024-02-19 07:46 | disposition home or self-care (01) | LOC: SONOGRAMA 07:38 | PROVIDERS: ATTEND Internal Medicine | DX: E03.9 Hypothyroidism, unspecified (principal) ==

== ENCOUNTER → 2024-03-22 08:11 | Outpatient (CLI) | payer OTHER ==
[2024-03-22 09:18] LABS: HEMATOCRIT 37.3 % (39.0-48.0); HEMOGLOBIN 12.9 g/dL (13-16.00); MEAN CELL VOLUME 107.6 fL (80.0-100.00); MEAN CORPUSCULAR HEMOGLOBIN 37.1 pg (27.00-32.0); MEAN CORPUSCULAR HGB CONC 34.5 g/dl (32.0-36.0); PLATELET COUNT 196 K/uL (150-450); RED BLOOD COUNT 3.47 M/uL (4.00-6.00); RED CELL DISTRIBUTION WIDTH 14.4 % (11.5-14.5)
[2024-03-22 10:20] LABS: FOLIC ACID 5.77 ng/ml (4.78-20)
[2024-03-22 10:28] LABS: ALBUMIN 4.1 gm/dL (3.4-5.0); BILIRUBIN TOTAL 0.46 mg/dL (0.3-1.2); CALCIUM 9.2 mg/dL (8.5-10.1); CREATININE SERUM 1.65 mg/dL (0.70-1.30); GFR 40.55; GLOBULINA 2.9 G/DL (2.4-3.5); POTASSIUM 5.22 mEq/L (3.5-5.1)
[2024-03-22 10:31] LABS: TSH 20.3 uIU/mL (0.358-3.74)
== END | disposition home or self-care (01) ==
LOC: LAB 08:11
PROVIDERS: ATTEND Internal Medicine Hematology & Oncology
DX: D50.8 Other iron deficiency anemias (principal); I10 Essential (primary) hypertension; E74.02 Pompe disease; K76.89 Other specified diseases of liver; R97.0 Elevated carcinoembryonic antigen [CEA]; C34.12 Malignant neoplasm of upper lobe, left bronchus or lung; R91.8 Other nonspecific abnormal finding of lung field; G47.33 Obstructive sleep apnea (adult) (pediatric); D70.1 Agranulocytosis secondary to cancer chemotherapy; E03.9 Hypothyroidism, unspecified; E06.3 Autoimmune thyroiditis

== ENCOUNTER 2024-04-01 08:36 | Outpatient (CLI) | payer OTHER | END 2024-04-01 08:41 | disposition home or self-care (01) | LOC: RAD 08:36 | PROVIDERS: ATTEND Internal Medicine | DX: M25.551 Pain in right hip (principal) ==

== ENCOUNTER 2024-04-04 07:37 | Outpatient (CLI) | payer OTHER ==
[2024-04-04 08:31] LABS: HEMATOCRIT 38.8 % (39.0-48.0); HEMOGLOBIN 13.2 g/dL (13-16.00); MEAN CORPUSCULAR HEMOGLOBIN 37.3 pg (27.00-32.0); MEAN CORPUSCULAR HGB CONC 34.2 g/dl (32.0-36.0); PLATELET COUNT 179 K/uL (150-450); RED BLOOD COUNT 3.55 M/uL (4.00-6.00); RED CELL DISTRIBUTION WIDTH 14.1 % (11.5-14.5)
[2024-04-04 09:35] LABS: ALBUMIN 3.9 gm/dL (3.4-5.0); BILIRUBIN TOTAL 0.39 mg/dL (0.3-1.2); CALCIUM 8.8 mg/dL (8.5-10.1); CREATININE SERUM 1.38 mg/dL (0.70-1.30); GFR 49.83; GLOBULINA 3.1 G/DL (2.4-3.5); POTASSIUM 4.67 mEq/L (3.5-5.1); T4 FREE 1.06 NG/ML (0.76-1.46)
[2024-04-04 09:36] LABS: TSH 16.4 uIU/mL (0.358-3.74)
== END 2024-04-04 07:43 | disposition home or self-care (01) ==
LOC: LAB 07:37
PROVIDERS: ATTEND Internal Medicine Hematology & Oncology
DX: C34.12 Malignant neoplasm of upper lobe, left bronchus or lung (principal); R91.8 Other nonspecific abnormal finding of lung field; G47.33 Obstructive sleep apnea (adult) (pediatric); I10 Essential (primary) hypertension; R97.0 Elevated carcinoembryonic antigen [CEA]; D70.1 Agranulocytosis secondary to cancer chemotherapy; E03.2 Hypothyroidism due to medicaments and other exogenous substances; D50.8 Other iron deficiency anemias; R74.02 Elevation of levels of lactic acid dehydrogenase [LDH]; K76.89 Other specified diseases of liver; E03.8 Other specified hypothyroidism; R97.8 Other abnormal tumor markers

== ENCOUNTER 2024-04-07 13:07 | Emergency (ER) | payer OTHER ==
[~2024-04-07] VITALS: Ht 190.5 cm; Wt 128.4 kg
[2024-04-07] MEDS ORDERED: FUROsemide 40 MG/4 ML VIAL ONE (14:00)
[2024-04-07] MEDS ORDERED: BUDESONIDE 0.5 MG/2 ML AMPUL.NEB IH ONE ×2 (14:00→14:29)
[2024-04-07] MEDS ORDERED: FUROsemide 40 MG/4 ML VIAL IV ONE (14:00)
[2024-04-07] MEDS ORDERED: LEVALBUTEROL HCL 1.25 MG/3 ML SOLUTION IH ONE ×2 (14:00→14:29)
[2024-04-07 14:24] LABS: ABG PH 7.416 (7.35-7.45); ABG PO2 65.8 mmHg (80-100); ABG pCO2 36.4 mmHg (35-45); BASE EXCESS -1.2 mmol/l; BICARBONATE 22.9 mmol/l (23-25); SaO2 92.9 %
[2024-04-07 14:29] LABS: URINE APPEARANCE Clear; URINE BILIRRUBIN Negative (NEGATIVE); URINE BLOOD Negative; URINE COLOR Yellow; URINE GLUCOSE Negative (NEGATIVE); URINE KETONE Negative (NEGATIVE); URINE LEUKOCYTE Negative; URINE NITRATE Negative; URINE PROTEIN Negative (NEGATIVE)
[2024-04-07 14:33] LABS: URINE RBC 4.1 uL (0.0-20.8)
[2024-04-07 14:33] LABS: HEMATOCRIT 40.4 % (39.0-48.0); HEMOGLOBIN 13.8 g/dL (13-16.00); MEAN CELL VOLUME 109.7 fL (80.0-100.00); MEAN CORPUSCULAR HEMOGLOBIN 37.6 pg (27.00-32.0); MEAN CORPUSCULAR HGB CONC 34.3 g/dl (32.0-36.0); PLATELET COUNT 145 K/uL (150-450); RED BLOOD COUNT 3.68 M/uL (4.00-6.00); RED CELL DISTRIBUTION WIDTH 13.3 % (11.5-14.5)
[2024-04-07 14:37] LABS: URINE BACTERIA 2.5 uL (0.0-1933); URINE EPITHELIAL CELLS 0.9 uL (0.0-38.8); URINE WBC 0.7 uL (0.0-23.2)
[2024-04-07 15:28] LABS: INR 1.07; PARTIAL THROMBOPLASTIN TIME 25.3 SECONDS (22.0-34.0); PROTHROMBIN TIME 11.6 SECONDS (9.0-11.5)
[2024-04-07 15:38] LABS: allen test SATISFACTORY; o2 28 %; puncture site RADIAL LEFT
[2024-04-07 16:24] LABS: ALBUMIN 4.4 gm/dL (3.4-5.0); BILIRUBIN TOTAL 0.54 mg/dL (0.3-1.2); CALCIUM 9.2 mg/dL (8.5-10.1); CREATININE SERUM 1.43 mg/dL (0.70-1.30); GFR 47.83; GLOBULINA 3.9 G/DL (2.4-3.5); POTASSIUM 4.32 mEq/L (3.5-5.1); TOTAL PROTEIN 8.3 gm/dL (6.4-8.2)
== END 2024-04-07 17:32 | disposition home or self-care (01) ==
LOC: ER 13:07
PROVIDERS: Emergency Medicine; General Practice
DX: R53.83 Other fatigue (principal); I50.9 Heart failure, unspecified; F32.89 Other specified depressive episodes; E11.9 Type 2 diabetes mellitus without complications; Z79.84 Long term (current) use of oral hypoglycemic drugs
CPT/HCPCS: 36415; 71045; 82803; 93005; 94640; 99284; J1940

== ENCOUNTER → 2024-05-02 08:28 | Outpatient (CLI) | payer OTHER ==
[2024-05-02 08:54] LABS: HEMATOCRIT 39.9 % (39.0-48.0); MEAN CELL VOLUME 105.1 fL (80.0-100.00); MEAN CORPUSCULAR HEMOGLOBIN 36.9 pg (27.00-32.0); MEAN CORPUSCULAR HGB CONC 35.1 g/dl (32.0-36.0); PLATELET COUNT 182 K/uL (150-450); RED CELL DISTRIBUTION WIDTH 12.9 % (11.5-14.5)
[2024-05-02 09:59] LABS: ALBUMIN 3.9 gm/dL (3.4-5.0); BILIRUBIN TOTAL 0.39 mg/dL (0.3-1.2); CALCIUM 9.1 mg/dL (8.5-10.1); CREATININE SERUM 1.24 mg/dL (0.70-1.30); GFR 56.38; GLOBULINA 3.2 G/DL (2.4-3.5); POTASSIUM 4.76 mEq/L (3.5-5.1); TOTAL PROTEIN 7.1 gm/dL (6.4-8.2)
== END | disposition home or self-care (01) ==
LOC: LAB 08:28
PROVIDERS: ATTEND Internal Medicine Hematology & Oncology
DX: C34.12 Malignant neoplasm of upper lobe, left bronchus or lung (principal); R91.8 Other nonspecific abnormal finding of lung field; G47.33 Obstructive sleep apnea (adult) (pediatric); I10 Essential (primary) hypertension; R97.0 Elevated carcinoembryonic antigen [CEA]; D70.1 Agranulocytosis secondary to cancer chemotherapy

== ENCOUNTER 2024-05-23 08:11 | Outpatient (CLI) | payer OTHER ==
[2024-05-23 09:08] LABS: HEMATOCRIT 41.1 % (39.0-48.0); MEAN CELL VOLUME 104.3 fL (80.0-100.00); MEAN CORPUSCULAR HEMOGLOBIN 35.7 pg (27.00-32.0); MEAN CORPUSCULAR HGB CONC 34.2 g/dl (32.0-36.0); PLATELET COUNT 152 K/uL (150-450); RED BLOOD COUNT 3.94 M/uL (4.00-6.00); RED CELL DISTRIBUTION WIDTH 12.9 % (11.5-14.5)
[2024-05-23 10:00] LABS: ALBUMIN 3.7 gm/dL (3.4-5.0); BILIRUBIN TOTAL 0.44 mg/dL (0.3-1.2); CREATININE SERUM 1.06 mg/dL (0.70-1.30); GFR 67.57; GLOBULINA 3.1 G/DL (2.4-3.5); POTASSIUM 4.86 mEq/L (3.5-5.1); T4 FREE 0.99 NG/ML (0.76-1.46); TOTAL PROTEIN 6.8 gm/dL (6.4-8.2)
[2024-05-23 10:11] LABS: TSH 7.15 uIU/mL (0.358-3.74)
[2024-05-23 11:09] LABS: FOLIC ACID 7.55 ng/ml (4.78-20)
== END 2024-05-23 08:14 | disposition home or self-care (01) ==
LOC: LAB 08:11
PROVIDERS: ATTEND Internal Medicine Hematology & Oncology
DX: C34.12 Malignant neoplasm of upper lobe, left bronchus or lung (principal); R91.8 Other nonspecific abnormal finding of lung field; G47.33 Obstructive sleep apnea (adult) (pediatric); I10 Essential (primary) hypertension; R97.0 Elevated carcinoembryonic antigen [CEA]; D70.1 Agranulocytosis secondary to cancer chemotherapy; E03.2 Hypothyroidism due to medicaments and other exogenous substances

== ENCOUNTER 2024-06-21 07:42 | Outpatient (CLI) | payer OTHER | END 2024-06-21 07:43 | disposition home or self-care (01) | LOC: NUCLEAR 07:42 | PROVIDERS: ATTEND Internal Medicine Hematology & Oncology | DX: C34.12 Malignant neoplasm of upper lobe, left bronchus or lung (principal) | CPT/HCPCS: 78815; A9552 ==

== ENCOUNTER → 2024-07-01 08:14 | Outpatient (CLI) | payer OTHER ==
[2024-07-01 09:18] LABS: HEMATOCRIT 42.9 % (39.0-48.0); HEMOGLOBIN 15.1 g/dL (13-16.00); MEAN CELL VOLUME 99.5 fL (80.0-100.00); MEAN CORPUSCULAR HEMOGLOBIN 34.9 pg (27.00-32.0); MEAN CORPUSCULAR HGB CONC 35.1 g/dl (32.0-36.0); PLATELET COUNT 170 K/uL (150-450); RED BLOOD COUNT 4.31 M/uL (4.00-6.00); RED CELL DISTRIBUTION WIDTH 13.4 % (11.5-14.5)
[2024-07-01 10:37] LABS: ALBUMIN 3.6 gm/dL (3.4-5.0); BILIRUBIN TOTAL 0.43 mg/dL (0.3-1.2); CALCIUM 9.2 mg/dL (8.5-10.1); CREATININE SERUM 1.12 mg/dL (0.70-1.30); GFR 63.41; GLOBULINA 3.2 G/DL (2.4-3.5); POTASSIUM 4.75 mEq/L (3.5-5.1); T4 FREE 0.96 NG/ML (0.76-1.46); TOTAL PROTEIN 6.8 gm/dL (6.4-8.2)
[2024-07-01 10:40] LABS: TSH 11.3 uIU/mL (0.358-3.74)
== END | disposition home or self-care (01) ==
LOC: LAB 08:14
PROVIDERS: ATTEND Internal Medicine Hematology & Oncology
DX: C34.12 Malignant neoplasm of upper lobe, left bronchus or lung (principal); R91.8 Other nonspecific abnormal finding of lung field; G47.33 Obstructive sleep apnea (adult) (pediatric); I10 Essential (primary) hypertension; D70.1 Agranulocytosis secondary to cancer chemotherapy; E03.2 Hypothyroidism due to medicaments and other exogenous substances; D50.8 Other iron deficiency anemias; R74.02 Elevation of levels of lactic acid dehydrogenase [LDH]; K76.89 Other specified diseases of liver; E03.8 Other specified hypothyroidism; R97.0 Elevated carcinoembryonic antigen [CEA]

== ENCOUNTER 2024-08-19 08:11 | Outpatient (CLI) | payer OTHER ==
[2024-08-19 08:53] LABS: HEMATOCRIT 41.4 % (39.0-48.0); HEMOGLOBIN 14.4 g/dL (13-16.00); MEAN CELL VOLUME 98.7 fL (80.0-100.00); MEAN CORPUSCULAR HEMOGLOBIN 34.4 pg (27.00-32.0); MEAN CORPUSCULAR HGB CONC 34.9 g/dl (32.0-36.0); PLATELET COUNT 211 K/uL (150-450); RED CELL DISTRIBUTION WIDTH 14.9 % (11.5-14.5)
[2024-08-19 09:43] LABS: ALBUMIN 3.5 gm/dL (3.4-5.0); BILIRUBIN TOTAL 0.38 mg/dL (0.3-1.2); CALCIUM 9.3 mg/dL (8.5-10.1); CREATININE SERUM 1.08 mg/dL (0.70-1.30); GFR 66.12; GLOBULINA 3.4 G/DL (2.4-3.5); POTASSIUM 4.87 mEq/L (3.5-5.1); T4 FREE 1.32 NG/ML (0.76-1.46); TOTAL PROTEIN 6.9 gm/dL (6.4-8.2); TSH 1.83 uIU/mL (0.358-3.74)
[2024-08-19 12:45] LABS: FOLIC ACID 13.27 ng/ml (4.78-20)
== END 2024-08-19 08:19 | disposition home or self-care (01) ==
LOC: LAB 08:11
PROVIDERS: ATTEND Internal Medicine Hematology & Oncology
DX: D50.8 Other iron deficiency anemias (principal); I10 Essential (primary) hypertension; R74.02 Elevation of levels of lactic acid dehydrogenase [LDH]; K76.89 Other specified diseases of liver; D51.8 Other vitamin B12 deficiency anemias; E03.8 Other specified hypothyroidism; R97.0 Elevated carcinoembryonic antigen [CEA]; R97.8 Other abnormal tumor markers; C34.12 Malignant neoplasm of upper lobe, left bronchus or lung; R91.8 Other nonspecific abnormal finding of lung field; G47.33 Obstructive sleep apnea (adult) (pediatric); D70.1 Agranulocytosis secondary to cancer chemotherapy; E03.2 Hypothyroidism due to medicaments and other exogenous substances

== ENCOUNTER 2024-09-06 08:18 | Outpatient (CLI) | payer OTHER ==
[2024-09-06 08:51] LABS: HEMATOCRIT 44.7 % (39.0-48.0); HEMOGLOBIN 14.9 g/dL (13-16.00); MEAN CELL VOLUME 101.8 fL (80.0-100.00); MEAN CORPUSCULAR HEMOGLOBIN 33.8 pg (27.00-32.0); MEAN CORPUSCULAR HGB CONC 33.2 g/dl (32.0-36.0); PLATELET COUNT 155 K/uL (150-450); RED BLOOD COUNT 4.39 M/uL (4.00-6.00); RED CELL DISTRIBUTION WIDTH 14.6 % (11.5-14.5)
[2024-09-06 10:09] LABS: ALBUMIN 3.6 gm/dL (3.4-5.0); BILIRUBIN TOTAL 0.46 mg/dL (0.3-1.2); CALCIUM 9.2 mg/dL (8.5-10.1); CREATININE SERUM 1.15 mg/dL (0.70-1.30); GFR 61.5; GLOBULINA 2.7 G/DL (2.4-3.5); POTASSIUM 4.71 mEq/L (3.5-5.1); TOTAL PROTEIN 6.3 gm/dL (6.4-8.2)
== END 2024-09-06 08:19 | disposition home or self-care (01) ==
LOC: LAB 08:18
PROVIDERS: ATTEND Internal Medicine Hematology & Oncology
DX: C34.12 Malignant neoplasm of upper lobe, left bronchus or lung (principal); R91.8 Other nonspecific abnormal finding of lung field; G47.33 Obstructive sleep apnea (adult) (pediatric); I10 Essential (primary) hypertension; R97.0 Elevated carcinoembryonic antigen [CEA]; D70.1 Agranulocytosis secondary to cancer chemotherapy; E03.2 Hypothyroidism due to medicaments and other exogenous substances; D50.8 Other iron deficiency anemias; R74.02 Elevation of levels of lactic acid dehydrogenase [LDH]; K76.89 Other specified diseases of liver; R97.8 Other abnormal tumor markers

== ENCOUNTER 2024-09-23 08:24 | Outpatient (CLI) | payer OTHER ==
[2024-09-23 09:18] LABS: HEMATOCRIT 43.7 % (39.0-48.0); MEAN CELL VOLUME 100.4 fL (80.0-100.00); MEAN CORPUSCULAR HEMOGLOBIN 34.6 pg (27.00-32.0); MEAN CORPUSCULAR HGB CONC 34.4 g/dl (32.0-36.0); PLATELET COUNT 190 K/uL (150-450); RED BLOOD COUNT 4.35 M/uL (4.00-6.00); RED CELL DISTRIBUTION WIDTH 14.5 % (11.5-14.5)
[2024-09-23 10:00] LABS: ALBUMIN 3.6 gm/dL (3.4-5.0); BILIRUBIN TOTAL 0.47 mg/dL (0.3-1.2); CALCIUM 9.1 mg/dL (8.5-10.1); CREATININE SERUM 1.09 mg/dL (0.70-1.30); GFR 65.42; GLOBULINA 2.8 G/DL (2.4-3.5); POTASSIUM 4.36 mEq/L (3.5-5.1); TOTAL PROTEIN 6.4 gm/dL (6.4-8.2)
== END 2024-09-23 08:25 | disposition home or self-care (01) ==
LOC: LAB 08:24
PROVIDERS: ATTEND Internal Medicine Hematology & Oncology
DX: C34.12 Malignant neoplasm of upper lobe, left bronchus or lung (principal); R91.8 Other nonspecific abnormal finding of lung field; G47.33 Obstructive sleep apnea (adult) (pediatric); I10 Essential (primary) hypertension; R97.0 Elevated carcinoembryonic antigen [CEA]; D70.1 Agranulocytosis secondary to cancer chemotherapy; E03.2 Hypothyroidism due to medicaments and other exogenous substances; D50.8 Other iron deficiency anemias; R74.02 Elevation of levels of lactic acid dehydrogenase [LDH]; K76.89 Other specified diseases of liver; R97.8 Other abnormal tumor markers

== ENCOUNTER → 2024-09-27 | Outpatient (CLI) | payer OTHER ==
[2024-09-27 11:33] LABS: T4 FREE 1.24 NG/ML (0.76-1.46); TSH 1.67 uIU/mL (0.358-3.74)
== END | disposition home or self-care (01) ==
LOC: LAB 08:51
PROVIDERS: ATTEND Internal Medicine Hematology & Oncology
DX: E03.8 Other specified hypothyroidism (principal)

== ENCOUNTER 2024-10-24 08:28 | Outpatient (CLI) | payer OTHER ==
[2024-10-24 09:14] LABS: HEMATOCRIT 46.5 % (39.0-48.0); HEMOGLOBIN 15.6 g/dL (13-16.00); MEAN CELL VOLUME 101.2 fL (80.0-100.00); MEAN CORPUSCULAR HGB CONC 33.6 g/dl (32.0-36.0); PLATELET COUNT 193 K/uL (150-450); RED BLOOD COUNT 4.59 M/uL (4.00-6.00); RED CELL DISTRIBUTION WIDTH 13.6 % (11.5-14.5)
[2024-10-24 10:17] LABS: ALBUMIN 3.6 gm/dL (3.4-5.0); BILIRUBIN TOTAL 0.41 mg/dL (0.3-1.2); CALCIUM 8.9 mg/dL (8.5-10.1); CREATININE SERUM 1.1 mg/dL (0.70-1.30); GFR 64.74; GLOBULINA 3.1 G/DL (2.4-3.5); POTASSIUM 4.96 mEq/L (3.5-5.1); TOTAL PROTEIN 6.7 gm/dL (6.4-8.2)
== END 2024-10-24 08:31 | disposition home or self-care (01) ==
LOC: LAB 08:28
PROVIDERS: ATTEND Internal Medicine Hematology & Oncology
DX: D50.8 Other iron deficiency anemias (principal); I11.0 Hypertensive heart disease with heart failure; R74.02 Elevation of levels of lactic acid dehydrogenase [LDH]; K76.89 Other specified diseases of liver; R97.0 Elevated carcinoembryonic antigen [CEA]; R97.8 Other abnormal tumor markers; C34.12 Malignant neoplasm of upper lobe, left bronchus or lung; R91.8 Other nonspecific abnormal finding of lung field; G47.33 Obstructive sleep apnea (adult) (pediatric); D70.0 Congenital agranulocytosis; E03.2 Hypothyroidism due to medicaments and other exogenous substances

== ENCOUNTER → 2024-10-29 | Outpatient (CLI) | payer OTHER | END | disposition home or self-care (01) | LOC: TOM 08:19 | PROVIDERS: ATTEND Internal Medicine Hematology & Oncology | DX: C34.12 Malignant neoplasm of upper lobe, left bronchus or lung (principal); R91.8 Other nonspecific abnormal finding of lung field; G47.33 Obstructive sleep apnea (adult) (pediatric); I10 Essential (primary) hypertension; R97.0 Elevated carcinoembryonic antigen [CEA]; D70.1 Agranulocytosis secondary to cancer chemotherapy; E03.2 Hypothyroidism due to medicaments and other exogenous substances | CPT/HCPCS: 71270; Q9965 ==

== ENCOUNTER 2024-11-13 08:09 | Outpatient (CLI) | payer OTHER ==
[2024-11-13 08:53] LABS: HEMATOCRIT 46.3 % (39.0-48.0); HEMOGLOBIN 15.6 g/dL (13-16.00); MEAN CELL VOLUME 101.1 fL (80.0-100.00); MEAN CORPUSCULAR HEMOGLOBIN 34.1 pg (27.00-32.0); MEAN CORPUSCULAR HGB CONC 33.7 g/dl (32.0-36.0); PLATELET COUNT 167 K/uL (150-450); RED BLOOD COUNT 4.58 M/uL (4.00-6.00); RED CELL DISTRIBUTION WIDTH 13.5 % (11.5-14.5)
[2024-11-13 09:24] LABS: ALBUMIN 3.4 gm/dL (3.4-5.0); BILIRUBIN TOTAL 0.48 mg/dL (0.3-1.2); CREATININE SERUM 1.14 mg/dL (0.70-1.30); GFR 62.12; GLOBULINA 3.3 G/DL (2.4-3.5); POTASSIUM 4.54 mEq/L (3.5-5.1); T4 FREE 1.37 NG/ML (0.76-1.46); TOTAL PROTEIN 6.7 gm/dL (6.4-8.2); TSH 2.23 uIU/mL (0.358-3.74)
== END 2024-11-13 08:10 | disposition home or self-care (01) ==
LOC: LAB 08:09
PROVIDERS: ATTEND Internal Medicine Hematology & Oncology
DX: C34.12 Malignant neoplasm of upper lobe, left bronchus or lung (principal); R91.8 Other nonspecific abnormal finding of lung field; G47.33 Obstructive sleep apnea (adult) (pediatric); I10 Essential (primary) hypertension; R97.0 Elevated carcinoembryonic antigen [CEA]; D70.1 Agranulocytosis secondary to cancer chemotherapy; E03.2 Hypothyroidism due to medicaments and other exogenous substances; D50.8 Other iron deficiency anemias; R74.02 Elevation of levels of lactic acid dehydrogenase [LDH]; K76.89 Other specified diseases of liver; E03.8 Other specified hypothyroidism

== ENCOUNTER 2024-12-05 07:56 | Outpatient (CLI) | payer OTHER ==
[2024-12-05 08:38] LABS: HEMATOCRIT 46.1 % (39.0-48.0); HEMOGLOBIN 15.8 g/dL (13-16.00); MEAN CELL VOLUME 100.4 fL (80.0-100.00); MEAN CORPUSCULAR HEMOGLOBIN 34.3 pg (27.00-32.0); MEAN CORPUSCULAR HGB CONC 34.2 g/dl (32.0-36.0); PLATELET COUNT 156 K/uL (150-450); RED BLOOD COUNT 4.59 M/uL (4.00-6.00); RED CELL DISTRIBUTION WIDTH 13.7 % (11.5-14.5)
[2024-12-05 09:36] LABS: ALBUMIN 3.7 gm/dL (3.4-5.0); BILIRUBIN TOTAL 0.57 mg/dL (0.3-1.2); CALCIUM 8.8 mg/dL (8.5-10.1); CREATININE SERUM 1.24 mg/dL (0.70-1.30); GFR 56.38; GLOBULINA 3.1 G/DL (2.4-3.5); POTASSIUM 5.01 mEq/L (3.5-5.1); TOTAL PROTEIN 6.8 gm/dL (6.4-8.2)
== END 2024-12-05 07:59 | disposition home or self-care (01) ==
LOC: LAB 07:56
PROVIDERS: ATTEND Internal Medicine Hematology & Oncology
DX: C34.12 Malignant neoplasm of upper lobe, left bronchus or lung (principal); R91.8 Other nonspecific abnormal finding of lung field; G47.33 Obstructive sleep apnea (adult) (pediatric); I10 Essential (primary) hypertension; R97.0 Elevated carcinoembryonic antigen [CEA]; D70.1 Agranulocytosis secondary to cancer chemotherapy; E03.2 Hypothyroidism due to medicaments and other exogenous substances; D50.8 Other iron deficiency anemias; R74.02 Elevation of levels of lactic acid dehydrogenase [LDH]; K76.89 Other specified diseases of liver; R97.8 Other abnormal tumor markers

== ENCOUNTER 2024-12-27 07:08 | Outpatient (CLI) | payer OTHER ==
[2024-12-27 07:31] LABS: BASO % 0.5 % (0.1-1.2); EOS # 0.43 (0.04-0.54); EOS % 6.5 % (0.7-7.0); HEMATOCRIT 44.6 % (40.1-51.0); HEMOGLOBIN 15.4 g/dL (13.7-17.5); LYMPH # 2.36 (1.18-3.74); LYMPH % 35.7 % (19.3-53.1); MEAN CORPUSCULAR HEMOGLOBIN 34.2 pg (25.6-32.2); MONO # 0.52 (0.24-0.82); MONO % 7.9 % (4.7-12.5); NEUT # 3.25 (1.56-6.13); NEUT % 49.1 % (34.0-71.1); PLATELET COUNT 154 K/uL (163-369); RED CELL DISTRIBUTION WIDTH 13.2 % (11.6-14.4)
[2024-12-27 08:08] LABS: ALBUMIN 3.6 gm/dL (3.4-5.0); BILIRUBIN TOTAL 0.61 mg/dL (0.3-1.2); CALCIUM 8.7 mg/dL (8.5-10.1); CREATININE SERUM 1.38 mg/dL (0.70-1.30); GFR 49.83; GLOBULINA 2.8 G/DL (2.4-3.5); POTASSIUM 4.46 mEq/L (3.5-5.1); TOTAL PROTEIN 6.4 gm/dL (6.4-8.2)
== END 2024-12-27 07:12 | disposition home or self-care (01) ==
LOC: LAB 07:08
PROVIDERS: ATTEND Internal Medicine Hematology & Oncology
DX: C34.12 Malignant neoplasm of upper lobe, left bronchus or lung (principal); R91.8 Other nonspecific abnormal finding of lung field; G47.33 Obstructive sleep apnea (adult) (pediatric); I10 Essential (primary) hypertension; R97.0 Elevated carcinoembryonic antigen [CEA]; D70.1 Agranulocytosis secondary to cancer chemotherapy; E03.2 Hypothyroidism due to medicaments and other exogenous substances; D50.8 Other iron deficiency anemias; R74.02 Elevation of levels of lactic acid dehydrogenase [LDH]; K76.89 Other specified diseases of liver

== ENCOUNTER → 2025-01-14 07:37 | Outpatient (CLI) | payer OTHER ==
[2025-01-14 09:24] LABS: FREE TRIODOTIRONINE 1.9 pg/ml (2.18-3.98); T4 FREE 1.07 NG/ML (0.76-1.46); T4 TOTAL 8.95 UG/DL (4.5-12.1); TSH 1.08 uIU/mL (0.358-3.74)
== END | disposition home or self-care (01) ==
LOC: LAB 07:37
PROVIDERS: ATTEND Internal Medicine
DX: E03.9 Hypothyroidism, unspecified (principal)

== ENCOUNTER 2025-01-20 07:37 | Outpatient (CLI) | payer OTHER ==
[2025-01-20 08:45] LABS: BASO % 0.5 % (0.1-1.2); EOS # 0.43 (0.04-0.54); EOS % 7.1 % (0.7-7.0); HEMATOCRIT 44.6 % (40.1-51.0); HEMOGLOBIN 15.2 g/dL (13.7-17.5); LYMPH # 1.77 (1.18-3.74); LYMPH % 29.2 % (19.3-53.1); MEAN CORPUSCULAR HEMOGLOBIN 33.2 pg (25.6-32.2); MONO # 0.49 (0.24-0.82); MONO % 8.1 % (4.7-12.5); NEUT # 3.33 (1.56-6.13); NEUT % 54.8 % (34.0-71.1); PLATELET COUNT 159 K/uL (163-369); RED BLOOD COUNT 4.58 M/uL (4.63-6.08); RED CELL DISTRIBUTION WIDTH 13.2 % (11.6-14.4)
[2025-01-20 09:55] LABS: ALBUMIN 3.4 gm/dL (3.4-5.0); BILIRUBIN TOTAL 0.59 mg/dL (0.3-1.2); CALCIUM 8.7 mg/dL (8.5-10.1); CREATININE SERUM 1.25 mg/dL (0.70-1.30); GFR 55.72; POTASSIUM 4.78 mEq/L (3.5-5.1); T4 FREE 1.18 NG/ML (0.76-1.46); TOTAL PROTEIN 6.4 gm/dL (6.4-8.2); TSH 3.57 uIU/mL (0.358-3.74)
== END 2025-01-20 07:38 | disposition home or self-care (01) ==
LOC: LAB 07:37
PROVIDERS: ATTEND Internal Medicine Hematology & Oncology
DX: D50.8 Other iron deficiency anemias (principal); I10 Essential (primary) hypertension; R74.02 Elevation of levels of lactic acid dehydrogenase [LDH]; K76.89 Other specified diseases of liver; R97.0 Elevated carcinoembryonic antigen [CEA]; R97.8 Other abnormal tumor markers; C34.12 Malignant neoplasm of upper lobe, left bronchus or lung; R91.8 Other nonspecific abnormal finding of lung field; D70.1 Agranulocytosis secondary to cancer chemotherapy; E03.2 Hypothyroidism due to medicaments and other exogenous substances

== ENCOUNTER 2025-02-06 07:50 | Outpatient (CLI) | payer OTHER ==
[2025-02-06 08:39] LABS: BASO % 0.8 % (0.1-1.2); EOS # 0.74 (0.04-0.54); EOS % 12.4 % (0.7-7.0); LYMPH # 1.63 (1.18-3.74); LYMPH % 27.2 % (19.3-53.1); MEAN PLATELET VOLUME 9.50 fl (9.4-12.4); MONO # 0.49 (0.24-0.82); MONO % 8.2 % (4.7-12.5); NEUT # 3.06 (1.56-6.13); NEUT % 51.1 % (34.0-71.1); RED CELL DISTRIBUTION WIDTH 13.3 % (11.6-14.4)
[2025-02-06 09:22] LABS: ALT/SGPT 21.0 U/L (12-78); AST/SGOT 10.0 U/L (15-37); BILIRUBIN TOTAL 0.52 mg/dL (0.3-1.2); BUN CREA RATIO 22.0 (7.0-25.0); CREATININE SERUM 1.29 mg/dL (0.70-1.30); FE 69.0 ug/dl (65-175); GFR 53.73; GLOBULINA 3.0 G/DL (2.4-3.5); GLUCOSE FASTING 130.0 mg/dL (65-100); LDH 219.0 U/L (87-241); OSMOLALITY SERUM 290.0 MOSM/KG (275-295); T4 FREE 1.11 NG/ML (0.76-1.46); TSH 2.56 uIU/mL (0.358-3.74)
[2025-02-06 10:03] LABS: FOLIC ACID 10.08 ng/ml (4.78-20)
== END 2025-02-06 07:59 | disposition home or self-care (01) ==
LOC: LAB 07:50
PROVIDERS: ATTEND Internal Medicine Hematology & Oncology
DX: D50.8 Other iron deficiency anemias (principal); I10 Essential (primary) hypertension; R74.02 Elevation of levels of lactic acid dehydrogenase [LDH]; K76.89 Other specified diseases of liver; R97.0 Elevated carcinoembryonic antigen [CEA]; C34.12 Malignant neoplasm of upper lobe, left bronchus or lung; R91.8 Other nonspecific abnormal finding of lung field; G47.33 Obstructive sleep apnea (adult) (pediatric); D70.1 Agranulocytosis secondary to cancer chemotherapy; E03.2 Hypothyroidism due to medicaments and other exogenous substances

== ENCOUNTER 2025-03-02 10:28 | Emergency (ER) | payer OTHER ==
[~2025-03-02] VITALS: Ht 190.5 cm; Wt 123.8 kg
[2025-03-02 11:23] LABS: BASO % 0.5 % (0.1-1.2); EOS # 0.45 (0.04-0.54); EOS % 7.5 % (0.7-7.0); LYMPH # 1.73 (1.18-3.74); LYMPH % 28.9 % (19.3-53.1); MEAN PLATELET VOLUME 9.70 fl (9.4-12.4); MONO # 0.66 (0.24-0.82); MONO % 11.0 % (4.7-12.5); NEUT # 3.11 (1.56-6.13); NEUT % 51.9 % (34.0-71.1); RED CELL DISTRIBUTION WIDTH 13.1 % (11.6-14.4)
[2025-03-02 12:06] LABS: COVID-19 AG POSITIVE (NEGATIVE)
== END 2025-03-02 12:39 | disposition home or self-care (01) ==
LOC: ER 10:36
PROVIDERS: General Practice
DX: U07.1 COVID-19 (principal); B34.9 Viral infection, unspecified; C34.90 Malignant neoplasm of unspecified part of unspecified bronchus or lung; I10 Essential (primary) hypertension; E11.9 Type 2 diabetes mellitus without complications; Z79.84 Long term (current) use of oral hypoglycemic drugs

== ENCOUNTER 2025-03-11 07:45 | Outpatient (CLI) | payer OTHER ==
[2025-03-11 09:10] LABS: BASO % 0.5 % (0.1-1.2); EOS # 0.86 (0.04-0.54); EOS % 14.2 % (0.7-7.0); LYMPH # 2.07 (1.18-3.74); LYMPH % 34.2 % (19.3-53.1); MEAN PLATELET VOLUME 9.50 fl (9.4-12.4); MONO # 0.61 (0.24-0.82); MONO % 10.1 % (4.7-12.5); NEUT # 2.48 (1.56-6.13); NEUT % 40.8 % (34.0-71.1); RED CELL DISTRIBUTION WIDTH 13.0 % (11.6-14.4)
[2025-03-11 09:43] LABS: ALT/SGPT 26.0 U/L (12-78); AST/SGOT 16.0 U/L (15-37); BILIRUBIN TOTAL 0.5 mg/dL (0.3-1.2); BUN CREA RATIO 20.0 (7.0-25.0); CREATININE SERUM 1.36 mg/dL (0.70-1.30); GFR 50.55; GLOBULINA 3.1 G/DL (2.4-3.5); GLUCOSE FASTING 125.0 mg/dL (65-100); LDH 255.0 U/L (87-241); OSMOLALITY SERUM 290.0 MOSM/KG (275-295)
== END 2025-03-11 07:46 | disposition home or self-care (01) ==
LOC: LAB 07:45
PROVIDERS: ATTEND Internal Medicine Hematology & Oncology
DX: C34.12 Malignant neoplasm of upper lobe, left bronchus or lung (principal); R91.8 Other nonspecific abnormal finding of lung field; G47.33 Obstructive sleep apnea (adult) (pediatric); I10 Essential (primary) hypertension; R97.0 Elevated carcinoembryonic antigen [CEA]; D70.1 Agranulocytosis secondary to cancer chemotherapy; E03.2 Hypothyroidism due to medicaments and other exogenous substances; D50.8 Other iron deficiency anemias; R74.02 Elevation of levels of lactic acid dehydrogenase [LDH]; K76.89 Other specified diseases of liver; R97.8 Other abnormal tumor markers

== ENCOUNTER → 2025-03-27 08:04 | Outpatient (CLI) | payer OTHER ==
[2025-03-27 08:45] LABS: BASO % 0.6 % (0.1-1.2); EOS # 0.74 (0.04-0.54); EOS % 11.3 % (0.7-7.0); LYMPH # 2.02 (1.18-3.74); LYMPH % 30.7 % (19.3-53.1); MEAN PLATELET VOLUME 9.80 fl (9.4-12.4); MONO # 0.56 (0.24-0.82); MONO % 8.5 % (4.7-12.5); NEUT # 3.20 (1.56-6.13); NEUT % 48.7 % (34.0-71.1); RED CELL DISTRIBUTION WIDTH 12.9 % (11.6-14.4)
[2025-03-27 09:33] LABS: ALT/SGPT 19.0 U/L (12-78); AST/SGOT 14.0 U/L (15-37); BILIRUBIN TOTAL 0.55 mg/dL (0.3-1.2); BUN CREA RATIO 18.0 (7.0-25.0); CREATININE SERUM 1.32 mg/dL (0.70-1.30); GFR 52.32; GLOBULINA 3.1 G/DL (2.4-3.5); GLUCOSE FASTING 124.0 mg/dL (65-100); LDH 216.0 U/L (87-241); OSMOLALITY SERUM 289.0 MOSM/KG (275-295)
== END | disposition home or self-care (01) ==
LOC: LAB 08:04
PROVIDERS: ATTEND Internal Medicine Hematology & Oncology
DX: D50.8 Other iron deficiency anemias (principal); I10 Essential (primary) hypertension; R74.02 Elevation of levels of lactic acid dehydrogenase [LDH]; K76.89 Other specified diseases of liver; R97.0 Elevated carcinoembryonic antigen [CEA]; R97.8 Other abnormal tumor markers; C34.12 Malignant neoplasm of upper lobe, left bronchus or lung; R91.8 Other nonspecific abnormal finding of lung field; G47.33 Obstructive sleep apnea (adult) (pediatric); D70.1 Agranulocytosis secondary to cancer chemotherapy; E03.2 Hypothyroidism due to medicaments and other exogenous substances

== ENCOUNTER 2025-04-14 08:09 | Outpatient (CLI) | payer OTHER ==
[2025-04-14 08:39] LABS: BASO % 0.6 % (0.1-1.2); EOS # 0.64 (0.04-0.54); EOS % 10.3 % (0.7-7.0); LYMPH # 1.96 (1.18-3.74); LYMPH % 31.5 % (19.3-53.1); MEAN PLATELET VOLUME 9.40 fl (9.4-12.4); MONO # 0.52 (0.24-0.82); MONO % 8.3 % (4.7-12.5); NEUT # 3.06 (1.56-6.13); NEUT % 49.1 % (34.0-71.1); RED CELL DISTRIBUTION WIDTH 12.2 % (11.6-14.4)
[2025-04-14 09:43] LABS: ALT/SGPT 16.0 U/L (12-78); AST/SGOT 13.0 U/L (15-37); BILIRUBIN TOTAL 0.4 mg/dL (0.3-1.2); BUN CREA RATIO 23.0 (7.0-25.0); CREATININE SERUM 1.23 mg/dL (0.70-1.30); GFR 56.76; GLOBULINA 3.1 G/DL (2.4-3.5); GLUCOSE FASTING 129.0 mg/dL (65-100); LDH 230.0 U/L (87-241); OSMOLALITY SERUM 290.0 MOSM/KG (275-295)
== END 2025-04-14 08:13 | disposition home or self-care (01) ==
LOC: LAB 08:09
PROVIDERS: ATTEND Internal Medicine Hematology & Oncology
DX: C34.12 Malignant neoplasm of upper lobe, left bronchus or lung (principal); R91.8 Other nonspecific abnormal finding of lung field; G47.33 Obstructive sleep apnea (adult) (pediatric); I10 Essential (primary) hypertension; R97.0 Elevated carcinoembryonic antigen [CEA]; D70.1 Agranulocytosis secondary to cancer chemotherapy; E03.2 Hypothyroidism due to medicaments and other exogenous substances; Z80.3 Family history of malignant neoplasm of breast; Z80.41 Family history of malignant neoplasm of ovary; Z80.49 Family history of malignant neoplasm of other genital organs; Z80.0 Family history of malignant neoplasm of digestive organs; E86.0 Dehydration; D50.8 Other iron deficiency anemias; R74.02 Elevation of levels of lactic acid dehydrogenase [LDH]; K76.89 Other specified diseases of liver; R97.8 Other abnormal tumor markers

== ENCOUNTER 2025-04-15 08:55 | Outpatient (CLI) | payer OTHER | END 2025-04-15 09:03 | disposition home or self-care (01) | LOC: TOM 08:55 | PROVIDERS: ATTEND Internal Medicine Pulmonary Disease | DX: J43.2 Centrilobular emphysema (principal); R91.1 Solitary pulmonary nodule ==

== ENCOUNTER 2025-05-05 08:25 | Outpatient (CLI) | payer OTHER ==
[2025-05-05 08:51] LABS: BASO % 0.6 % (0.1-1.2); EOS # 0.66 (0.04-0.54); EOS % 10.1 % (0.7-7.0); LYMPH # 1.55 (1.18-3.74); LYMPH % 23.8 % (19.3-53.1); MEAN PLATELET VOLUME 9.40 fl (9.4-12.4); MONO # 0.53 (0.24-0.82); MONO % 8.1 % (4.7-12.5); NEUT # 3.73 (1.56-6.13); NEUT % 57.2 % (34.0-71.1); RED CELL DISTRIBUTION WIDTH 12.7 % (11.6-14.4)
[2025-05-05 10:06] LABS: ALT/SGPT 18.0 U/L (12-78); AST/SGOT 14.0 U/L (15-37); BILIRUBIN TOTAL 0.47 mg/dL (0.3-1.2); BUN CREA RATIO 23.0 (7.0-25.0); CHOL HDL RATIO 3.3 (0-5.0); CREATININE SERUM 1.2 mg/dL (0.70-1.30); FE 111.0 ug/dl (65-175); GFR 58.4; GLOBULINA 3.1 G/DL (2.4-3.5); GLUCOSE FASTING 134.0 mg/dL (65-100); HDL 57.0 mg/dl (40-60); LDH 243.0 U/L (87-241); LDL 105.0 mg/dl (0-130); OSMOLALITY SERUM 291.0 MOSM/KG (275-295); PROSTATIC SPECIFIC ANTIGEN 3.38 NG/ML (0.010-4.00); T4 FREE 1.12 NG/ML (0.76-1.46); TSH 3.09 uIU/mL (0.358-3.74); VLDL 24.0 (0-39)
[2025-05-05 12:00] LABS: FOLIC ACID 9.59 ng/ml (4.78-20)
== END 2025-05-05 08:32 | disposition home or self-care (01) ==
LOC: LAB 08:25
PROVIDERS: ATTEND Internal Medicine Hematology & Oncology
DX: D50.8 Other iron deficiency anemias (principal); I10 Essential (primary) hypertension; R74.02 Elevation of levels of lactic acid dehydrogenase [LDH]; K76.89 Other specified diseases of liver; E53.8 Deficiency of other specified B group vitamins; K51.40 Inflammatory polyps of colon without complications; K90.89 Other intestinal malabsorption; E78.2 Mixed hyperlipidemia; E03.8 Other specified hypothyroidism; R97.0 Elevated carcinoembryonic antigen [CEA]; R97.8 Other abnormal tumor markers; R97.20 Elevated prostate specific antigen [PSA]

== ENCOUNTER → 2025-06-20 08:10 | Outpatient (CLI) | payer OTHER ==
[2025-06-20 09:16] LABS: BASO % 0.5 % (0.1-1.2); EOS # 0.61 (0.04-0.54); EOS % 10.4 % (0.7-7.0); LYMPH # 1.39 (1.18-3.74); LYMPH % 23.6 % (19.3-53.1); MEAN PLATELET VOLUME 9.50 fl (9.4-12.4); MONO # 0.48 (0.24-0.82); MONO % 8.1 % (4.7-12.5); NEUT # 3.37 (1.56-6.13); NEUT % 57.2 % (34.0-71.1); RED CELL DISTRIBUTION WIDTH 12.7 % (11.6-14.4)
[2025-06-20 10:11] LABS: ALT/SGPT 23.0 U/L (12-78); AST/SGOT 18.0 U/L (15-37); BILIRUBIN TOTAL 0.6 mg/dL (0.3-1.2); BUN CREA RATIO 17.0 (7.0-25.0); CREATININE SERUM 1.19 mg/dL (0.70-1.30); FE 79.0 ug/dl (65-175); GFR 58.97; GLOBULINA 3.2 G/DL (2.4-3.5); GLUCOSE FASTING 118.0 mg/dL (65-100); LDH 239.0 U/L (87-241); OSMOLALITY SERUM 291.0 MOSM/KG (275-295)
[2025-06-20 11:19] LABS: FOLIC ACID 9.05 ng/ml (4.78-20)
== END | disposition home or self-care (01) ==
LOC: LAB 08:10
PROVIDERS: ATTEND Internal Medicine Hematology & Oncology
DX: C34.12 Malignant neoplasm of upper lobe, left bronchus or lung (principal); R91.8 Other nonspecific abnormal finding of lung field; G47.33 Obstructive sleep apnea (adult) (pediatric); I10 Essential (primary) hypertension; R97.0 Elevated carcinoembryonic antigen [CEA]; D70.1 Agranulocytosis secondary to cancer chemotherapy; E03.2 Hypothyroidism due to medicaments and other exogenous substances; Z80.3 Family history of malignant neoplasm of breast; Z80.41 Family history of malignant neoplasm of ovary; Z80.49 Family history of malignant neoplasm of other genital organs; Z80.0 Family history of malignant neoplasm of digestive organs; E86.0 Dehydration; D50.8 Other iron deficiency anemias; R74.02 Elevation of levels of lactic acid dehydrogenase [LDH]; K76.89 Other specified diseases of liver

== ENCOUNTER → 2025-07-11 08:37 | Outpatient (CLI) | payer OTHER ==
[2025-07-11 09:17] LABS: BASO % 0.2 % (0.1-1.2); EOS # 0.04 (0.04-0.54); EOS % 0.4 % (0.7-7.0); LYMPH # 2.03 (1.18-3.74); LYMPH % 18.2 % (19.3-53.1); MEAN PLATELET VOLUME 9.60 fl (9.4-12.4); MONO # 0.74 (0.24-0.82); MONO % 6.6 % (4.7-12.5); NEUT # 8.30 (1.56-6.13); NEUT % 74.3 % (34.0-71.1); RED CELL DISTRIBUTION WIDTH 12.9 % (11.6-14.4)
[2025-07-11 10:12] LABS: ALT/SGPT 29.0 U/L (12-78); AST/SGOT 17.0 U/L (15-37); BILIRUBIN TOTAL 0.7 mg/dL (0.3-1.2); BUN CREA RATIO 21.0 (7.0-25.0); CREATININE SERUM 1.42 mg/dL (0.70-1.30); GFR 48.09; GLOBULINA 3.6 G/DL (2.4-3.5); GLUCOSE FASTING 140.0 mg/dL (65-100); LDH 235.0 U/L (87-241); OSMOLALITY SERUM 292.0 MOSM/KG (275-295); T4 FREE 1.27 NG/ML (0.76-1.46); TSH 1.35 uIU/mL (0.358-3.74)
== END | disposition home or self-care (01) ==
LOC: LAB 08:37
PROVIDERS: ATTEND Internal Medicine Hematology & Oncology
DX: D50.8 Other iron deficiency anemias (principal); I10 Essential (primary) hypertension; R74.02 Elevation of levels of lactic acid dehydrogenase [LDH]; K76.89 Other specified diseases of liver; E03.8 Other specified hypothyroidism; R97.0 Elevated carcinoembryonic antigen [CEA]; R97.8 Other abnormal tumor markers; C34.12 Malignant neoplasm of upper lobe, left bronchus or lung; R91.8 Other nonspecific abnormal finding of lung field; G47.33 Obstructive sleep apnea (adult) (pediatric); D70.1 Agranulocytosis secondary to cancer chemotherapy; E03.2 Hypothyroidism due to medicaments and other exogenous substances; Z80.3 Family history of malignant neoplasm of breast; Z80.41 Family history of malignant neoplasm of ovary; Z80.49 Family history of malignant neoplasm of other genital organs; Z80.0 Family history of malignant neoplasm of digestive organs; E86.0 Dehydration

== ENCOUNTER 2025-07-21 07:23 | Outpatient (CLI) | payer OTHER | END 2025-07-21 07:24 | disposition home or self-care (01) | LOC: NUCLEAR 07:23 | PROVIDERS: ATTEND Internal Medicine Hematology & Oncology | DX: C34.12 Malignant neoplasm of upper lobe, left bronchus or lung (principal) | CPT/HCPCS: 78816; A9552 ==

== ENCOUNTER 2025-07-29 07:31 | Outpatient (CLI) | payer OTHER ==
[2025-07-29 08:19] LABS: BASO % 0.6 % (0.1-1.2); EOS # 0.37 (0.04-0.54); EOS % 7.4 % (0.7-7.0); LYMPH # 1.62 (1.18-3.74); LYMPH % 32.3 % (19.3-53.1); MEAN PLATELET VOLUME 9.30 fl (9.4-12.4); MONO # 0.41 (0.24-0.82); MONO % 8.2 % (4.7-12.5); NEUT # 2.58 (1.56-6.13); NEUT % 51.3 % (34.0-71.1); RED CELL DISTRIBUTION WIDTH 12.6 % (11.6-14.4)
[2025-07-29 08:50] LABS: ALT/SGPT 19.0 U/L (12-78); AST/SGOT 16.0 U/L (15-37); BILIRUBIN TOTAL 0.48 mg/dL (0.3-1.2); BUN CREA RATIO 20.0 (7.0-25.0); CREATININE SERUM 1.34 mg/dL (0.70-1.30); GFR 51.42; GLOBULINA 3.5 G/DL (2.4-3.5); GLUCOSE FASTING 119.0 mg/dL (65-100); LDH 242.0 U/L (87-241); OSMOLALITY SERUM 293.0 MOSM/KG (275-295); T4 FREE 1.15 NG/ML (0.76-1.46); TSH 3.51 uIU/mL (0.358-3.74)
== END 2025-07-29 07:36 | disposition home or self-care (01) ==
LOC: LAB 07:31
PROVIDERS: ATTEND Internal Medicine Hematology & Oncology
DX: C34.12 Malignant neoplasm of upper lobe, left bronchus or lung (principal); R91.8 Other nonspecific abnormal finding of lung field; G47.33 Obstructive sleep apnea (adult) (pediatric); I10 Essential (primary) hypertension; R97.0 Elevated carcinoembryonic antigen [CEA]; D70.1 Agranulocytosis secondary to cancer chemotherapy; E03.2 Hypothyroidism due to medicaments and other exogenous substances; Z80.3 Family history of malignant neoplasm of breast; Z80.41 Family history of malignant neoplasm of ovary; Z80.49 Family history of malignant neoplasm of other genital organs; Z80.0 Family history of malignant neoplasm of digestive organs; E86.0 Dehydration; D50.8 Other iron deficiency anemias; R74.02 Elevation of levels of lactic acid dehydrogenase [LDH]; K76.89 Other specified diseases of liver